=== PATIENT | female | born 1935 | race Caucasian/White ===

== ENCOUNTER → 2016-08-26 | Outpatient (CLI) | payer MEDICARE, BC ==
[~2016-08-26] MED LIST: BIOT10004 PO; CALC500T42 PO; LISI-360 PO; METO50TA PO; TAB-TAB PO; VITA20002 PO
[2016-08-26 13:03] LABS: HEMATOCRIT 37.2 % (35.0-46.0); MEAN CELL VOLUME 89.3 FL (80.0-100.0); MEAN CORPUSCULAR HEMOGLOBIN 30.3 PG (27.0-34.0); MEAN CORPUSCULAR HGB CONC 33.9 % (32.0-36.0); PLATELET COUNT 277 TH/MM3 (150-450); RED BLOOD COUNT 4.17 MIL/MM3 (4.00-5.30); RED CELL DISTRIBUTION WIDTH 13.8 % (11.6-17.2); REVIEW FLAG FINAL; WHITE BLOOD COUNT 5.6 TH/MM3 (4.0-11.0)
== END ==
LOC: PLAB 10:20
PROVIDERS: ATTEND Family Medicine
DX: R53.83 Other fatigue (principal)
CPT/HCPCS: 36415; 84443; 85027

== ENCOUNTER → 2016-10-10 | Outpatient (CLI) | payer MEDICARE, BC ==
[2016-10-10 13:33] LABS: ALKALINE PHOSPHATASE 75 U/L (45-117); ALT (GPT) 17 U/L (10-53); ANION GAP 8 MEQ/L (5-15); AST (GOT) 18 U/L (15-37); BICARBONATE 31.5 MEQ/L (21.0-32.0); BLOOD UREA NITROGEN 16 MG/DL (7-18); CHLORIDE 100 MEQ/L (98-107); GLOMERULAR FILTRATION RATE 57 ML/MIN (>89); POTASSIUM 4.4 MEQ/L (3.5-5.1); SODIUM (NA) 139 MEQ/L (136-145); TOTAL BILIRUBIN ADULT 0.3 MG/DL (0.2-1.0)
== END ==
LOC: PLAB 11:10
PROVIDERS: ATTEND Internal Medicine Endocrinology, Diabetes & Metabolism
DX: M81.0 Age-related osteoporosis without current pathological fracture (principal)
CPT/HCPCS: 36415; 80053; 82306

== ENCOUNTER 2017-01-31 12:06 | Inpatient (IN) | payer MEDICARE, BC ==
[~2017-01-31 12:06] MED LIST changes: +AMLO5TAB2 PO; -BIOT10004 PO; -CALC500T42 PO; +CALTCHW5 PO; +CHOL1CAP6 PO; +CLON1TAB PO; +DENO60P SQ; -LISI-360 PO; +LISI-515 PO; +ONCETAB7 PO; -TAB-TAB PO; -VITA20002 PO; +VITA250T3 PO
--- NOTE | 2017-01-31 12:55 | HHI.HP ---
HPI Service [facility] Primary Care Physician Abel Mann MD Admission Diagnosis Diagnoses: Chief Complaint: Shortness of breath, chills, recent pneumonia. Travel History International Travel<30 Days: No Contact w/Intl Traveler <30 Da: No Traveled to Known Affected Are: No History of Present Illness Ms. Ocampo is a pleasant 81-year-old female with a history of lung cancer, COPD, CHF, recent pneumonia who was directly admitted from her primary care provider's office due to shortness of breath, generalized weakness that started on 01/30/2017. Patient recently went to [place] for vacation and she was admitted at a local hospital in [facility] for 5 days due to pneumonia. She was discharged on , 01/26/2017 and she flew back on a 4 hour flight to [place] on 01/28/2017. Patient was doing well up until 01/30/2017 when she woke up with significant generalized weakness, shortness of breath and back chills. She did not have any cough, fever or chest pain. She denies any headache, nausea or vomiting, abdominal pain. Denies any ingested in bowel habits. She does however report not urinating enough. No dysuria or hematuria. Review of Systems Except as stated in HPI: all other systems reviewed are Neg Past Family Social History Past Medical History Congestive heart failure, hypertension, pneumonia, lung cancer, COPD Past Surgical History Hysterectomy Appendectomy Right knee surgery Reported Medications Metoprolol 50 mg twice a day Amlodipine 5 mg daily Lisinopril 20 mg twice a day Clonazepam 1 mg by mouth daily at bedtime Ehsan-Citrate 600+ D1 tablet daily Ascorbic acid 250 mg by mouth daily Vitamin D3 1000 unit capsules by mouth daily Multivitamin 1 Capsule daily. Allergies: Coded Allergies: amiodarone (Unverified Allergy, Severe, DESTROYED THYROID, 01/17/17) Family History No family history of Alzheimer's or Parkinson's. Social History Patient denies using alcohol, tobacco, illicit drugs. Physical Exam Physical Exam GENERAL: This is a well-nourished, well-developed patient, in no apparent distress. Currently on room air. SKIN: No rashes, ecchymoses or lesions. Warm and dry. HEAD: Atraumatic. Normocephalic. No temporal or scalp tenderness. EYES: Pupils equal round and reactive. No injection or drainage. ENT: Nose without bleeding, purulent drainage or septal hematoma. Airway patent. NECK: Trachea midline. No lymphadenopathy. Supple, nontender, no meningeal signs. CARDIOVASCULAR: Regular rhythm, tachycardic without murmurs, gallops, or rubs. No JVD. RESPIRATORY: Moderate air entry. No wheezing appreciated. Left basilar minor crackles appreciated. GASTROINTESTINAL: Abdomen soft, non-tender, nondistended. No guarding. MUSCULOSKELETAL: Extremities without clubbing, cyanosis, or edema. NEUROLOGICAL: Awake and alert. Cranial nerves II through XII intact. No focal neurological deficits. Normal speech. Laboratory CMP, CBC, lactic acid pending Imaging Chest x-ray pending. We'll probably consider CT angiography of the lungs depending on patient's creatinine. Caprini VTE Risk Assessment Caprini VTE Risk Assessment: Mod/High Risk (score >= 2) Caprini Risk Assessment Model Point Value = 1 Point Value = 2 Point Value = 3 Point Value = 5 Age 41-60 Minor surgery BMI > 25 kg/m2 Swollen legs Varicose veins or History of unexplained or recurrent spontaneous Oral contraceptives or hormone replacement Sepsis (< 1 month) Serious lung disease, including pneumonia (< 1 month) Abnormal pulmonary function Acute myocardial infarction Congestive heart failure (< 1 month) History of inflammatory bowel disease Medical patient at bed rest Age 61-74 Arthroscopic surgery Major open surgery (> 45 min) Laparoscopic surgery (> 45 min) Malignancy Confined to bed (> 72 hours) Immobilizing plaster cast Central venous access Age >= 75 History of VTE Family history of VTE Factor V Leiden Prothrombin [id number] Lupus anticoagulant Anticardiolipin antibodies Elevated serum homocysteine Heparin-induced thrombocytopenia Other congenital or acquired thrombophilia Stroke (< 1 month) Elective arthroplasty Hip, pelvis, or leg fracture Acute spinal cord injury (< 1 month) Prophylaxis Regimen Total Risk Factor Score Risk Level Prophylaxis Regimen 0-1 Low Early ambulation 2 Moderate Order ONE of the following: *Sequential Compression Device (SCD) *Heparin 5000 units SQ BID 3-4 Higher Order ONE of the following medications: *Heparin 5000 units SQ TID *Enoxaparin/Lovenox 40 mg SQ daily (WT < 150 kg, CrCl > 30 mL/min) *Enoxaparin/Lovenox 30 mg SQ daily (WT < 150 kg, CrCl > 10-29 mL/min) *Enoxaparin/Lovenox 30 mg SQ BID (WT < 150 kg, CrCl > 30 mL/min) AND/OR *Sequential Compression Device (SCD) 5 or more Highest Order ONE of the following medications: *Heparin 5000 units SQ TID (Preferred with Epidurals) *Enoxaparin/Lovenox 40 mg SQ daily (WT < 150 kg, CrCl > 30 mL/min) *Enoxaparin/Lovenox 30 mg SQ daily (WT < 150 kg, CrCl > 10-29 mL/min) *Enoxaparin/Lovenox 30 mg SQ BID (WT < 150 kg, CrCl > 30 mL/min) AND *Sequential Compression Device (SCD) Assessment and Plan Problem List: (1) History of pneumonia ICD Code: Z87.01 - Personal history of pneumonia (recurrent) (2) COPD (chronic obstructive pulmonary disease) ICD Code: J44.9 - Chronic obstructive pulmonary disease, unspecified (3) History of lung cancer ICD Code: Z85.118 - Personal history of other malignant neoplasm of bronchus and lung (4) Hypertension ICD Code: I10 - Hypertension Status: Chronic Assessment and Plan Ms. Ocampo is a pleasant 81-year-old female with a history of lung cancer, COPD, recent pneumonia treated in [place] who was admitted directly from the primary care provider's office due to shortness of breath, generalized weakness, chills. Patient denies any cough, fever. - Generalized weakness - Dyspnea - Recent pneumonia treated in [place]. Patient was discharged from the hospital on , 01/26/2017. - We are going to obtain basic labs including CBC, CMP, lactic acid, CXR. - If creatinine below 1.5 we'll consider obtaining pulmonary CT angiography. - Well's score for PE 4.5 - Moderate risk. Given her recent travel history ( 4 hour flight), concerning for PE. - If CT PE study cannot be done, we will consider VQ scan. - Pulmonology consulted. - COPD - does not appear to be in exacerbation. - Continue supplemental oxygen to keep O2 saturation above 90%. - DuoNeb when necessary. - History of recent pneumonia - patient was admitted in in a hospital in [place] for 5 days. Patient did not require any antibiotics on supplemental oxygen post discharge. - Hypertension - home medications are amlodipine 5 mg and lisinopril 20 mg twice a day. Full code. Heparin SQ. Physician Certification 2 Midnight Certification Type: Admission for Inpatient Services Order for Inpatient Services The services are ordered in accordance with Medicare regulations or non- Medicare payer requirements, as applicable. In the case of services not specified as inpatient-only, they are appropriately provided as inpatient services in accordance with the 2-midnight benchmark. Estimated LOS (days): 2 days is the estimated time the patient will need to remain in the hospital, assuming treatment plan goals are met and no additional complications. Post-Hospital Plan: Home Jesenia Davies DO Jan 31, 2017 12:55
[2017-01-31] MEDS ORDERED: SENNOSIDES 8.6 MG TAB PO PRN (13:00)
[2017-01-31] MEDS ORDERED: ONDANSETRON HCL 4 MG/2 ML VIAL IVP PRN (13:00)
[2017-01-31] MEDS ORDERED: SODIUM CHLORIDE 0.9% FLUSH 10 ML FLUSH IV FLUSH PRN (13:00)
[2017-01-31] MEDS ORDERED: BISACODYL 10 MG SUPP RECTAL PRN (13:00)
[2017-01-31] MEDS ORDERED: RESP: ALBUTEROL 2.5 MG/IPRATROPIUM 0.5 MG NEB (PRN) NEB (13:00)
[2017-01-31] MEDS ORDERED: LACTULOSE SYRUP 20 GM/30 ML CUP PO PRN (13:00)
[2017-01-31] MEDS ORDERED: NALOXONE HCL 0.4 MG/ML AMP IV PRN (13:00)
[2017-01-31] MEDS ORDERED: MAGNESIUM HYDROXIDE SUSP 30 ML CUP PO PRN (13:00)
[2017-01-31 14:07] LABS: AUTOMATED NEUTROPHIL # 8.3 TH/MM3 (1.8-7.7); BASOPHIL # 0.4 TH/MM3 (0-0.2); EOSINOPHIL # 0.5 TH/MM3 (0-0.4); EOSINOPHIL % 5.1 % (0.0-4.0); HEMATOCRIT 34.4 % (35.0-46.0); LYMPHOCYTE # 0.7 TH/MM3 (1.0-4.8); MEAN CELL VOLUME 87.7 FL (80.0-100.0); MEAN CORPUSCULAR HEMOGLOBIN 29.6 PG (27.0-34.0); MEAN CORPUSCULAR HGB CONC 33.8 % (32.0-36.0); MONO % 4.1 % (0.0-8.0); NEUT % 79.8 % (16.0-70.0); PLATELET COUNT 290 TH/MM3 (150-450); RED BLOOD COUNT 3.92 MIL/MM3 (4.00-5.30); RED CELL DISTRIBUTION WIDTH 13.2 % (11.6-17.2); WHITE BLOOD COUNT 10.3 TH/MM3 (4.0-11.0)
[2017-01-31] MEDS: HEPARIN SODIUM - SQ 10,000 UNITS/ML VIAL SQ SCH ×2 (14:08→22:33)
[2017-01-31 14:20] LABS: CHLORIDE 96 MEQ/L (98-107); POTASSIUM 3.5 MEQ/L (3.5-5.1); SODIUM (NA) 131 MEQ/L (136-145)
[2017-01-31 14:26] LABS: ANION GAP 7 MEQ/L (5-15); BICARBONATE 28.3 MEQ/L (21.0-32.0); BLOOD UREA NITROGEN 26 MG/DL (7-18)
[2017-01-31 14:29] LABS: ALT (GPT) 19 U/L (10-53); AST (GOT) 17 U/L (15-37); GLOMERULAR FILTRATION RATE 53 ML/MIN (>89)
[2017-01-31 14:31] LABS: TOTAL BILIRUBIN ADULT 0.5 MG/DL (0.2-1.0)
[2017-01-31 14:32] LABS: ALKALINE PHOSPHATASE 64 U/L (45-117)
[2017-01-31 14:42] LABS: HEMO FLAGS DIFF FINAL
--- NOTE | 2017-01-31 14:45 | RADRPT ---
EXAM DATE/TIME: 01/31/2017 14:17 [facility] COMPARISON: CHEST PA & LAT, August 03, 2013, 11:39. CHEST SINGLE AP, January 22, 2015, 2:10. CHEST EXPIRATION ONL Y, June 11, 2015, 14:44. INDICATIONS : Patient was recently released from a hospitalization for penumonia in [place] last week. Still h as symptoms. MEDICAL HISTORY : Hypertension. Chronic obstructive pulmonary disease. Osteoporosis. Irregular heart beat. Chemothe rapy. Radiation therapy. Dyspnea. Arthritis. Lung CA. Breast CA. Cervical CA. SURGICAL HISTORY : Tonsillectomy. Appendectomy. Hysterectomy. Cataract surgery. Cardiac ablation. Knee replacement. ENCOUNTER: Initial ACUITY: 2 weeks PAIN SCORE: 0/10 LOCATION: chest FINDINGS: PA and lateral views of the chest are stable from the prior study. A focal masslike density is unchan ged involving the right suprahilar region. The lungs are hyperaerated. No infiltrates or effusions. H eart is at the upper limits of normal in terms of size. A scoliotic and degenerative spine is seen. S urgical clips overlie the left axilla. CONCLUSION: Stable chronic changes as detailed above. Cricket South Jr., MD on January 31, 2017 at 14:42 Board Certified Radiologist. This report was verified electronically.
[2017-01-31 18:00] VITALS: BP 142/66; PULSE 102; RESP 18; TEMP 99.5; O2SAT 100
[2017-01-31 20:00] VITALS: BP 140/61; PULSE 104; RESP 20; TEMP 100; O2SAT 96
[2017-01-31] MEDS: SODIUM CHLORIDE 0.9% FLUSH 10 ML FLUSH IV FLUSH SCH (20:40)
[2017-01-31] MEDS: DOCUSATE SODIUM 50 MG/SENNA 8.6 MG TAB PO SCH (20:40)
[2017-01-31] MEDS: ACETAMINOPHEN 325 MG TAB PO PRN (20:40)
[2017-01-31] MEDS: SODIUM CHLOR 0.9% 1000 ML INJ 1,000 ML IV SCH (20:40)
[2017-01-31] MEDS: BUDESONIDE-FORMOTEROL 160/4.5 MCG INHALER INH SCH (20:41)
[2017-01-31 21:03] LABS: BLOOD, URINE TRACE (NEG); GLUCOSE,URINE NEG (NEG); KETONE, URINE NEG (NEG); NITRITE,URINE NEG (NEG)
[2017-01-31 21:25] LABS: MUCUS URINE OCC /lpf (OCC); URINE COLOR YELLOW (YELLW/STRAW)
[2017-01-31 21:26] LABS: COMMENT (UR) CULTURE INDICATED; CULTURE IF INDICATED CULTURE INDICATED; RBC, URINE 0-3 /hpf (0-3); SQUAMOUS EPITHELIAL CELL URINE 0-5 /hpf (0-5); WBC, URINE 15-19 /hpf (0-5)
[2017-01-31 22:36] VITALS: O2SAT 95
[2017-01-31] MEDS ORDERED: IOHEXOL 350 MG/ML 10 ML VIAL (for RAD DIAG) IVCONTRAST ONE (22:40)
--- NOTE | 2017-01-31 22:48 | RADRPT ---
EXAM DATE/TIME: 01/31/2017 21:51 [facility] COMPARISON: CHEST PA & LAT, January 31, 2017, 14:17. CT NEEDLE BIOPSY LUNG, RIGHT, June 11, 2015, 9:44. CHEST EXPIRATION ONLY, June 11, 2015, 14:44. INDICATIONS : Shortness of breath. Evaluate for embolism. IV CONTRAST: 75 cc Omnipaque 350 (iohexol) IV RADIATION DOSE: 7.94 CTDIvol (mGy) MEDICAL HISTORY : Hypertension. Chronic obstructive pulmonary disease. Carcinoma, lung.Carcinoma, breast. Carcinoma, ce rvical. SURGICAL HISTORY : Appendectomy. Hysterectomy.Cardiac ablation. ENCOUNTER: Initial ACUITY: 1 day PAIN SCALE: 4/10 LOCATION: chest TECHNIQUE: Volumetric scanning of the chest was performed using a pulmonary embolism protocol MIP images were re constructed. Using automated exposure control and adjustment of the mA and/or kV according to patien t size, radiation dose was kept as low as reasonably achievable to obtain optimal diagnostic quality images. DICOM format image data is available electronically for review and comparison. Follow-up recommendations for detected pulmonary nodules are based at a minimum on nodule size and pa tient risk factors according to Fleischner Society Guidelines. FINDINGS: PULMONARY ARTERIES: No filling defects are seen in the pulmonary arteries through the segmental level. LUNGS: There is chronic interstitial changes bilaterally. There is some parenchymal consolidation in the med ial right upper lung suspect is related to postradiation changes. There is scarring in both apices. T here are parenchymal changes in the medial right middle lobe. The lung bases are grossly clear. PLEURAE: There is no pleural thickening or pleural effusion. MEDIASTINUM: Few nonspecific lymph nodes are seen in the mediastinum. MUSCULOSKELETAL: Within normal limits for patient age. Degenerative changes. MISCELLANEOUS: The visualized upper abdominal organs demonstrate no acute abnormality. CONCLUSION: 1. No evidence of pulmonary embolism 2. Parenchymal changes in the medial right upper lung most likely related to post radiation therapy. 3. Parenchymal changes in the right middle lobe. 4. Scarring in both apices. 5. Bilateral chronic interstitial changes. Gutierrez Romero MD on January 31, 2017 at 22:42 Board Certified Radiologist. This report was verified electronically.
[2017-02-01] VITALS (8 sets, daily range): BP systolic 143–188; BP diastolic 68–80; PULSE 99–117; RESP 17–20; TEMP 96.6–101.3; O2SAT 93–95
[2017-02-01 06:47] LABS: AUTOMATED NEUTROPHIL # 5.3 TH/MM3 (1.8-7.7); BASOPHIL # 0.1 TH/MM3 (0-0.2); BASOPHIL % 1.2 % (0.0-2.0); EOSINOPHIL # 0.7 TH/MM3 (0-0.4); EOSINOPHIL % 9.6 % (0.0-4.0); HEMATOCRIT 33.8 % (35.0-46.0); HEMO FLAGS DIFF FINAL; LYMPH % 7.9 % (9.0-44.0); LYMPHOCYTE # 0.6 TH/MM3 (1.0-4.8); MEAN CORPUSCULAR HEMOGLOBIN 29.6 PG (27.0-34.0); MEAN CORPUSCULAR HGB CONC 32.9 % (32.0-36.0); MONO % 6.6 % (0.0-8.0); NEUT % 74.7 % (16.0-70.0); PLATELET COUNT 221 TH/MM3 (150-450); RED BLOOD COUNT 3.76 MIL/MM3 (4.00-5.30); RED CELL DISTRIBUTION WIDTH 13.9 % (11.6-17.2); WHITE BLOOD COUNT 7.2 TH/MM3 (4.0-11.0)
[2017-02-01 06:54] LABS: POTASSIUM 3.2 MEQ/L (3.5-5.1)
[2017-02-01 07:25] LABS: BICARBONATE 23.7 MEQ/L (21.0-32.0); CALCIUM-PROTEIN CORRECTED 7.8 MG/DL (8.5-10.1); TOTAL BILIRUBIN ADULT 0.4 MG/DL (0.2-1.0)
[2017-02-01] MEDS: DOCUSATE SODIUM 50 MG/SENNA 8.6 MG TAB PO SCH ×2 (07:50→12:52)
[2017-02-01] MEDS: SODIUM CHLORIDE 0.9% FLUSH 10 ML FLUSH IV FLUSH SCH ×2 (07:50→20:46)
[2017-02-01] MEDS: BUDESONIDE-FORMOTEROL 160/4.5 MCG INHALER INH SCH ×2 (07:50→20:46)
[2017-02-01] MEDS: ACETAMINOPHEN 325 MG TAB PO PRN ×3 (08:00→21:13)
[2017-02-01] MEDS ORDERED: INFLUENZA VIRUS VACCINE (QUADRIVALENT) 0.5 ML SYR IM ONE (10:00)
[2017-02-01] MEDS: HEPARIN SODIUM - SQ 10,000 UNITS/ML VIAL SQ SCH ×2 (12:52→23:39)
[2017-02-01] MEDS: METOPROLOL TARTRATE 50 MG TAB PO SCH ×2 (13:50→20:46)
[2017-02-01] MEDS: amLODIPine BESYLATE 5 MG TAB PO SCH (13:50)
[2017-02-01] MEDS: SODIUM CHLOR 0.9% 1000 ML INJ 1,000 ML IV SCH (13:50)
[2017-02-01] MEDS: LISINOPRIL 20 MG TAB PO SCH ×2 (13:50→20:46)
[2017-02-01 16:46] LABS: MAGNESIUM 2.2 MG/DL (1.5-2.5)
--- NOTE | 2017-02-01 16:48 | HHI.PR ---
Subjective Remarks Patient says she's feeling much better, is asking when she can go home. Denies having any nausea or vomiting or fever since last night, tolerating by mouth intake well. Discussed with nursing, no acute events reported overnight. Says she had a PET scan 6-8 weeks ago and that was negative for any cancer. Objective Vital Signs Date Time Temp Pulse Resp B/P (MAP) Pulse Ox O2 Delivery O2 Flow Rate FiO2 02/01/17 12:00 98.8 99 17 143/80 (101) 95 02/01/17 09:51 94 21 02/01/17 08:00 99.9 112 18 158/72 (100) 94 02/01/17 01:42 96.6 01/31/17 22:36 95 21 01/31/17 20:00 100.0 104 20 140/61 (87) 96 01/31/17 18:00 99.5 102 18 142/66 (91) 100 I/O 01/31/17 01/31/17 01/31/17 02/01/17 02/01/17 02/01/17 06:59 14:59 22:59 06:59 14:59 22:59 Intake Total 866 ml Output Total 100 ml 875 ml Balance -100 ml -9 ml Intake Oral 480 ml IV Total 386 ml Output Urine Total 100 ml 875 ml # Voids 1 5 # Bowel Movements 0 0 Result Diagram: 02/01/17 0609 02/01/17 0609 Objective Remarks GENERAL: Resting in bed comfortably, no acute distress CARDIOVASCULAR: Regular rate and rhythm without murmurs, gallops, or rubs. RESPIRATORY: Breath sounds equal and clear bilaterally. Unlabored breathing NEURO: alert and oriented x 3 A/P Assessment and Plan Ms. Ocampo is a pleasant 81-year-old female with a history of lung cancer, COPD, recent pneumonia treated in [place] who was admitted directly from the primary care provider's office due to shortness of breath, generalized weakness, chills. Patient denies any cough, fever. - Generalized weakness - improving subjectively. No fever noted while inpt. D/w pt possibilities of cancer, autoimmune dx, or infx. - Dyspnea - resolved. - CT scan neg for PE. shows chronic changes. I independently reviewed the CT scan films I do not see any acute pleural effusions or any acute infiltrates suggestive of pneumonia. - COPD - does not appear to be in exacerbation. - Continue supplemental oxygen to keep O2 saturation above 90%. - DuoNeb when necessary. - Hypertension - home medications amlodipine 5 mg and lisinopril 20 mg twice a day. Full code. Heparin SQ. Gabo Reich MD Feb 01, 2017 16:48
--- NOTE | 2017-02-02 00:58 | MB ---
cc: Ben SELF M.D. DATE OF CONSULTATION 02/01/17 HISTORY OF PRESENT ILLNESS Ms. Ocampo is an 81-year-old white female whom I have followed with COPD for many years and also lung cancer twice, most recently in 2016 treated with chemotherapy and radiation. She has had radiation scarring in the lung and a recent CT and PET CT in November did not suggest recurrent malignancy. She was recently hospitalized though while visiting family in [place] and they told her she had viral pneumonia. She was treated with antibiotics for 5 days, released and a flew home. She got back last week but came into her primary care doctor's office 2 days ago with a temperature of 103. She was sent immediately to the emergency room. CT scan was performed and in light of the recent travel and angiogram was included. There was no evidence of pulmonary embolism and she had parenchymal changes in the medial upper lobe consistent with prior radiation therapy and some mild changes in the middle lobe, nothing to really suggest an acute pneumonia. During the hospital stay her temperature has been 96 to the highest 100, today it has been 98 and she says she feels much better. She has had no hemoptysis or purulent sputum. She has had blood cultures which were negative. White count which is 7200, hemoglobin is 11.1, platelet counts normal. Electrolytes mildly abnormal with a sodium of 131 and a potassium of 3.2. She has had no hemoptysis. No purulent sputum. No swelling in her legs. No recent bowel complaints or urinary tract complaints. The urine culture is pending. PAST MEDICAL HISTORY She has a prior history of hypertension. She has had a hysterectomy and appendectomy, right knee surgery. MEDICATIONS Medications reviewed in the EMR. ALLERGIES AMIODARONE. SOCIAL HISTORY Single, . No longer smokes. Does not drink much alcohol. PHYSICAL EXAMINATION VITAL SIGNS: 98 degrees, 140/80, pulse is 90, respirations are 18. Her sats 95%. HEENT: Sclerae anicteric. Pharynx is clear. NECK: No adenopathy in the neck or supraclavicular region. LUNGS: Her chest is actually completely clear. No wheezes, rales or congestion. HEART: Regular rhythm. No harsh murmur. EXTREMITIES: No edema, calf tenderness or cyanosis. ASSESSMENT/PLAN Kay has been in the hospital over 24 hours now and has had a low grade temperature but is afebrile today. No specific site of infection has been identified. I do not see anything in her chest that really suggests an active infection, although, there could be something hidden in those areas of radiation fibrosis. Since she has already received 5 days of IV antibiotics recently I do not think treating her empirically at this point is warranted of course unless she has another temperature. She can continue her bronchodilators. If there is no other indication for continued hospitalization pulmonary status is stable for discharge and I can see her back in the office. However, I did explain to her that if she develops recurrent fever or increasing shortness of breath she should report back to the ER. R. Enmanuel Self MD RSW/EO /6:02 PM /12:47 AM
[2017-02-02 08:00] VITALS: O2SAT 95
[2017-02-02] MEDS: LISINOPRIL 20 MG TAB PO SCH ×2 (08:13→22:11)
[2017-02-02] MEDS: DOCUSATE SODIUM 50 MG/SENNA 8.6 MG TAB PO SCH ×2 (08:13→22:10)
[2017-02-02] MEDS: amLODIPine BESYLATE 5 MG TAB PO SCH (08:13)
[2017-02-02] MEDS: METOPROLOL TARTRATE 50 MG TAB PO SCH ×2 (08:13→22:10)
[2017-02-02] MEDS: BUDESONIDE-FORMOTEROL 160/4.5 MCG INHALER INH SCH ×2 (08:16→22:11)
[2017-02-02] MEDS: SODIUM CHLORIDE 0.9% FLUSH 10 ML FLUSH IV FLUSH SCH ×2 (08:16→22:11)
[2017-02-02 08:27] LABS: POTASSIUM 3.3 MEQ/L (3.5-5.1)
[2017-02-02 08:40] LABS: BICARBONATE 28.8 MEQ/L (21.0-32.0)
[2017-02-02] MEDS: guaiFENesin E.R. 600 MG TAB PO SCH ×2 (10:34→22:11)
[2017-02-02] MEDS: LEVOFLOXACIN 750 MG TAB PO SCH ×2 (10:34→10:35)
[2017-02-02] MEDS: HEPARIN SODIUM - SQ 10,000 UNITS/ML VIAL SQ SCH ×2 (10:35→22:19)
[2017-02-02 15:06] VITALS: BP 165/72; PULSE 95; RESP 18; TEMP 99.9; O2SAT 95
--- NOTE | 2017-02-02 15:36 | HHI.PR ---
Subjective Remarks Patient seen and examined today for follow-up on febrile illness. Patient again had fever last night with MAXIMUM TEMPERATURE 101.3. Patient states that she still has a dry nonproductive cough. She contributes the fever to her room being very hot. Is recommended by patient's security expert that if she is afebrile she could go home, however will need to start treatment since she now has fever. Objective Vitals Vital Signs Date Time Temp Pulse Resp B/P (MAP) Pulse Ox O2 Delivery O2 Flow Rate FiO2 02/02/17 15:06 99.9 95 18 165/72 (103) 95 02/01/17 23:00 98.7 02/01/17 21:55 100.2 101 20 146/68 (94) 93 02/01/17 20:55 94 21 02/01/17 20:00 101.3 117 20 188/80 (116) 95 I/O 02/01/17 02/01/17 02/01/17 02/02/17 02/02/17 02/02/17 06:59 14:59 22:59 06:59 14:59 22:59 Intake Total 866 ml 120 ml Output Total 875 ml 600 ml 1000 ml Balance -9 ml -600 ml -880 ml Intake Oral 480 ml 120 ml IV Total 386 ml Output Urine Total 875 ml 600 ml 1000 ml # Voids 5 2 1 # Bowel Movements 0 Result Diagram: 02/01/17 0609 02/02/17 0805 Objective Remarks GENERAL: Well-developed, well-nourished, in no acute distress. alert and orientated HEENT: Head is normocephalic without any lesions or masses noted. Facial features are symmetric. Eyes: Extraocular muscles are intact. Conjunctivae were clear NECK: Supple without any masses. Trachea midline no deviation. No JVD CARDIAC: Regular rhythm, regular rate. S1/S2 are heard. No murmurs gallops or rubs. LUNGS: Clear to auscultation bilaterally. No wheeze, rhonchi or rales. No use of accessory muscles on inspiration or expiration. ABDOMEN: Soft, nontender. Nondistended. Bowel sounds heard in all 4 quadrants. No organomegaly or masses. Negative rebound, negative guarding EXTREMITIES: No edema, pulses are equal bilaterally. No cyanosis or clubbing NEUROLOGY: Mood and affect appear appropriate. Cranial nerves II through XII grossly intact. Moving all extremities, speech is clear Urinary Catheter: No Vascular Central Line Catheter: No A/P Assessment and Plan Febrile illness, unknown etiology Could be viral in nature, however cannot completely rule out interstitial pneumonia and fibrotic lung tissue CT scan does not indicate any acute abnormality, PE, consolidations. Start Levaquin 750 mg daily Start Mucinex 600 mg twice daily Obtain influenza testing, sputum culture, strep pneumonia testing, Legionella testing Generalized weakness Physical therapy evaluated patient and recommended home with home health care i Chronic obstructive pulmonary disease without exacerbation Continue supplemental oxygen to keep O2 saturation above 90%. DuoNeb when necessary. Hypertension home medications amlodipine 5 mg and lisinopril 20 mg twice a day. DVT prevention Subcutaneous heparin Full code Discharge Planning Discharge planning hopefully tomorrow with home health care if patient remains afebrile Moreno Rico Feb 02, 2017 15:36
--- NOTE | 2017-02-02 15:37 | HHI.FF ---
Face to Face Verification Diagnosis: (1) Generalized weakness (2) COPD (chronic obstructive pulmonary disease) Physical Therapy Order: Evaluate and Treat, Improve ambulation, Strength and gait training Home Health Nursing Order: Medical education Signs/symptoms of disease process Nursing assessment with vital signs I have seen patient Kay Ocampo on 02/02/17. My clinical findings support the need for the requested home health care services because: Patient has SOB Deconditioned w/ increased weakness I certify that my clinical findings support that this patient is homebound because: Hx COPD- exertion dyspnea/weakness Moreno Rico Feb 02, 2017 15:37
[2017-02-02 15:46] VITALS: BP 127/63; PULSE 96; RESP 18; TEMP 97.3; O2SAT 95
[2017-02-02 20:00] VITALS: BP 147/72; PULSE 108; RESP 20; TEMP 98.6; O2SAT 97
[2017-02-02 20:39] VITALS: O2SAT 98
[2017-02-03 08:00] VITALS: BP 151/70; PULSE 109; RESP 22; TEMP 97.7; O2SAT 94
[2017-02-03] MEDS: DOCUSATE SODIUM 50 MG/SENNA 8.6 MG TAB PO SCH (08:44)
[2017-02-03] MEDS: LISINOPRIL 20 MG TAB PO SCH (08:44)
[2017-02-03] MEDS: guaiFENesin E.R. 600 MG TAB PO SCH (08:44)
[2017-02-03] MEDS: amLODIPine BESYLATE 5 MG TAB PO SCH (08:44)
[2017-02-03] MEDS: METOPROLOL TARTRATE 50 MG TAB PO SCH (08:44)
[2017-02-03] MEDS: BUDESONIDE-FORMOTEROL 160/4.5 MCG INHALER INH SCH (08:45)
[2017-02-03] MEDS: SODIUM CHLORIDE 0.9% FLUSH 10 ML FLUSH IV FLUSH SCH (08:47)
[2017-02-03] MEDS ORDERED: LEVA750T9 PO (08:59)
--- NOTE | 2017-02-03 09:00 | HHI.DCPOC ---
Discharge Care Plan Diagnosis: (1) Fever (2) Generalized weakness Goals to Promote Your Health * To prevent worsening of your condition and complications * To maintain your health at the optimal level Directions to Meet Your Goals Take your medications as prescribed Follow your dietary instruction Follow activity as directed Keep your appointments as scheduled Take your immunizations and boosters as scheduled If your symptoms worsen call your PCP, if no PCP go to Urgent Care Center or Emergency Room Smoking is Dangerous to Your Health. Avoid second hand smoke Call the 24-hour hour crisis hotline for domestic abuse at Moreno Rico Feb 03, 2017 09:00
--- NOTE | 2017-02-03 09:59 | PD.CONS ---
History of Present Illness Service Infectious Disease Consult Requested By Dr Enmanuel Salas Reason for Consult Fever- recurrent Primary Care Physician Abel Mann MD Diagnoses: (1) Fever (2) COPD (chronic obstructive pulmonary disease) (3) History of lung cancer History of Present Illness 81/ year old with h/o COPD - multiple cancers- lung cancer x 2 - recurrence last year - got radiation therapy. Last Chemotherapy in 2012- was visiting [place] last month when she had fever with chills - admitted up there for 5 days and work up negative- told it was ? viral and discharged- came back home and was here 2 days when she had fever with chills ago. No cough with sputum. Shortness of breath at baseline. No urinary symptoms though urine is abnormal. Patient had a bad tooth with root canal of an infected tooth about a month ago. Did have a Echo with Dr Reyes after that and it was ok per patient. Past Family Social History Allergies: Coded Allergies: amiodarone (Unverified Allergy, Severe, DESTROYED THYROID, 01/17/17) Physical Exam Vital Signs Vital Signs Date Time Temp Pulse Resp B/P (MAP) Pulse Ox O2 Delivery O2 Flow Rate FiO2 02/03/17 08:00 97.7 109 22 151/70 (97) 94 02/02/17 20:39 98 21 02/02/17 20:00 98.6 108 20 147/72 (97) 97 02/02/17 15:46 97.3 96 18 127/63 (84) 95 02/02/17 15:06 99.9 95 18 165/72 (103) 95 Physical Exam GENERAL: This is a well-nourished, well-developed patient, in no apparent distress. SKIN: No rashes, ecchymoses or lesions. Cool and dry. HEAD: Atraumatic. Normocephalic. No temporal or scalp tenderness. EYES: Pupils equal round and reactive. Extraocular motions intact. No scleral icterus. No injection or drainage. ENT: Nose without bleeding, purulent drainage or septal hematoma. Throat without erythema, tonsillar hypertrophy or exudate. Uvula midline. Airway patent. NECK: Trachea midline. No JVD or lymphadenopathy. Supple, nontender, no meningeal signs. CARDIOVASCULAR: Regular rate and rhythm without murmurs, gallops, or rubs. RESPIRATORY: Clear to auscultation. Breath sounds equal bilaterally. No wheezes , rales, or rhonchi. GASTROINTESTINAL: Abdomen soft, non-tender, nondistended. No hepato-splenomegaly , or palpable masses. No guarding. MUSCULOSKELETAL: Extremities without clubbing, cyanosis, or edema. No joint tenderness, effusion, or edema noted. No calf tenderness. Negative Homans sign bilaterally. NEUROLOGICAL: Awake and alert. Cranial nerves II through XII intact. Motor and sensory grossly within normal limits. Five out of 5 muscle strength in all muscle groups. Normal speech. Laboratory Date/Time Source Procedure Growth Status 01/31/17 19:05 Blood Peripheral Aerobic Blood Culture - Preliminary NO GROWTH IN 2 DAYS Resulted 01/31/17 19:05 Blood Peripheral Anaerobic Blood Culture - Preliminary NO GROWTH IN 2 DAYS Resulted 02/02/17 10:42 Nasal Aspirate Influenza Types A,B Antigen (BOB) - Final NEGATIVE FOR FLU A AND B ANTIGEN.... Complete 02/02/17 10:42 Urine Random Urine Legionella Antigen - Final PRESUMPTIVE NEGATIVE FOR LEGIONELLA P... Complete 02/02/17 10:42 Urine Random Urine Streptococcus pneumoniae Antigen (M - Final PRESUMPTIVE NEGATIVE FOR STREPTOCOCCU... Complete Result Diagram: 02/01/17 0609 02/02/17 0805 Assessment and Plan Problem List: (1) Fever ICD Codes: R50.9 - Fever, unspecified Status: Acute Plan: Cause uncertain Patient did have an infected root canal last month Follow blood cultures- though may remain negative as patient did have antibiotics Check CRP If CRP very high would need to consider MANFRED and evaluation by Cardiology If CRP < 10, has been afebrile for at least 48 hours and blood cultures remain negative - then would finish course of Levaquin UA was abnormal- will repeat (2) COPD (chronic obstructive pulmonary disease) ICD Codes: J44.9 - Chronic obstructive pulmonary disease, unspecified (3) History of lung cancer ICD Codes: Z85.118 - Personal history of other malignant neoplasm of bronchus and lung Problem Qualifiers (1) Fever: Qualified Codes: R50.9 - Fever, unspecified (2) COPD (chronic obstructive pulmonary disease): Qualified Codes: J44.9 - Chronic obstructive pulmonary disease, unspecified Le Araya MD Feb 03, 2017 09:59
[2017-02-03] MEDS: LEVOFLOXACIN 750 MG TAB PO SCH (10:13)
[2017-02-03] MEDS: HEPARIN SODIUM - SQ 10,000 UNITS/ML VIAL SQ SCH (10:17)
[2017-02-03 11:28] LABS: BLOOD, URINE NEG (NEG); GLUCOSE,URINE NEG (NEG); KETONE, URINE NEG (NEG); NITRITE,URINE NEG (NEG)
[2017-02-03 11:35] LABS: COMMENT (UR) CULT NOT INDICATED; CULTURE IF INDICATED CULT NOT INDICATED; METHOD OF COLLECTION CLEAN CATCH; RBC, URINE 0-3 /hpf (0-3); SQUAMOUS EPITHELIAL CELL URINE 0-5 /hpf (0-5); URINE COLOR YELLOW (YELLW/STRAW)
--- NOTE | 2017-02-03 13:40 | HHI.DS ---
Discharge Summary Admission Date Jan 31, 2017 at 12:06 Discharge Date: Feb 03, 2017 Admitting Diagnosis (1) History of pneumonia ICD Code: Z87.01 - Personal history of pneumonia (recurrent) (2) COPD (chronic obstructive pulmonary disease) ICD Code: J44.9 - Chronic obstructive pulmonary disease, unspecified (3) History of lung cancer ICD Code: Z85.118 - Personal history of other malignant neoplasm of bronchus and lung (4) Hypertension ICD Code: I10 - Hypertension Status: Chronic Procedures None Brief History - From Admission Ms. Ocampo is a pleasant 81-year-old female with a history of lung cancer, COPD, CHF, recent pneumonia who was directly admitted from her primary care provider's office due to shortness of breath, generalized weakness that started on 01/30/2017. Patient recently went to [place] for vacation and she was admitted at a local hospital in [facility] for 5 days due to pneumonia. She was discharged on , 01/26/2017 and she flew back on a 4 hour flight to [place] on 01/28/2017. Patient was doing well up until 01/30/2017 when she woke up with significant generalized weakness, shortness of breath and back chills. She did not have any cough, fever or chest pain. She denies any headache, nausea or vomiting, abdominal pain. Denies any ingested in bowel habits. She does however report not urinating enough. No dysuria or hematuria. CBC/BMP: 02/01/17 0609 02/02/17 0805 Significant Findings Laboratory Tests Test 01/31/17 13:45 01/31/17 19:05 01/31/17 20:10 02/01/17 06:09 Red Blood Count 3.92 MIL/MM3 (4.00-5.30) 3.76 MIL/MM3 (4.00-5.30) Hematocrit 34.4 % (35.0-46.0) 33.8 % (35.0-46.0) Neutrophils (%) (Auto) 79.8 % (16.0-70.0) 74.7 % (16.0-70.0) Lymphocytes (%) (Auto) 7.0 % (9.0-44.0) 7.9 % (9.0-44.0) Eosinophils (%) (Auto) 5.1 % (0.0-4.0) 9.6 % (0.0-4.0) Basophils (%) (Auto) 4.0 % (0.0-2.0) Neutrophils # (Auto) 8.3 TH/MM3 (1.8-7.7) Lymphocytes # (Auto) 0.7 TH/MM3 (1.0-4.8) 0.6 TH/MM3 (1.0-4.8) Eosinophils # (Auto) 0.5 TH/MM3 (0-0.4) 0.7 TH/MM3 (0-0.4) Basophils # (Auto) 0.4 TH/MM3 (0-0.2) D-Dimer Quantitative (PE/DVT) 1.08 MG/L FEU (0.00-0.50) Blood Urea Nitrogen 26 MG/DL (7-18) 19 MG/DL (7-18) Random Glucose 135 MG/DL (74-106) Albumin 3.0 GM/DL (3.4-5.0) 2.7 GM/DL (3.4-5.0) Calcium Level 7.9 MG/DL (8.5-10.1) 7.4 MG/DL (8.5-10.1) Sodium Level 131 MEQ/L (136-145) 131 MEQ/L (136-145) Chloride Level 96 MEQ/L (98-107) Estimat Glomerular Filtration Rate 53 ML/MIN (>89) 79 ML/MIN (>89) C-Reactive Protein 11.00 MG/DL (0.00-0.30) Urine Leukocyte Esterase SMALL (NEG) Urine WBC 15-19 /hpf (0-5) Urine WBC Clumps FEW (NONE) Hemoglobin 11.1 GM/DL (11.6-15.3) Aspartate Amino Transf (AST/SGOT) 13 U/L (15-37) Potassium Level 3.2 MEQ/L (3.5-5.1) Protein Corrected Calcium 7.8 MG/DL (8.5-10.1) Test 02/01/17 16:30 02/02/17 08:05 02/03/17 11:15 02/03/17 11:25 Total Creatine Kinase 25 U/L (26-192) Random Glucose 108 MG/DL (74-106) Calcium Level 8.3 MG/DL (8.5-10.1) Sodium Level 132 MEQ/L (136-145) Potassium Level 3.3 MEQ/L (3.5-5.1) Chloride Level 94 MEQ/L (98-107) Estimat Glomerular Filtration Rate 83 ML/MIN (>89) C-Reactive Protein 16.80 MG/DL (0.00-0.30) Imaging Last Impressions Chest X-Ray 01/31/17 0000 Signed Impressions: Service Date/Time: Tuesday, January 31, 2017 14:17 - CONCLUSION: Stable chronic changes as detailed above. Cricket South Jr., MD CT Angiography 01/31/17 0000 Signed Impressions: Service Date/Time: Tuesday, January 31, 2017 21:51 - CONCLUSION: 1. No evidence of pulmonary embolism 2. Parenchymal changes in the medial right upper lung most likely related to post radiation therapy. 3. Parenchymal changes in the right middle lobe. 4. Scarring in both apices. 5. Bilateral chronic interstitial changes. Gutierrez Romero MD PE at Discharge GENERAL: Well-developed, well-nourished, in no acute distress. alert and orientated HEENT: Head is normocephalic without any lesions or masses noted. Facial features are symmetric. Eyes: Extraocular muscles are intact. Conjunctivae were clear NECK: Supple without any masses. Trachea midline no deviation. No JVD CARDIAC: Regular rhythm, regular rate. S1/S2 are heard. No murmurs gallops or rubs. LUNGS: Clear to auscultation bilaterally. No wheeze, rhonchi or rales. No use of accessory muscles on inspiration or expiration. ABDOMEN: Soft, nontender. Nondistended. Bowel sounds heard in all 4 quadrants. No organomegaly or masses. Negative rebound, negative guarding EXTREMITIES: No edema, pulses are equal bilaterally. No cyanosis or clubbing NEUROLOGY: Mood and affect appear appropriate. Cranial nerves II through XII grossly intact. Moving all extremities, speech is clear Hospital Course 81-year-old female who originally presented to hospital the request of her primary medical doctor for admission because of generalized weakness, febrile illness. He should initially had workup performed and did not indicate any leukocytosis, chest x-ray did indicate chronic stable changes, CT of chest did not indicate any pulmonary emboli, did show parenchymal changes in the right upper lung most likely related to post radiation therapy. Patient was monitored in the hospital, physical therapy evaluated patient and recommended that she should receive some outpatient home health care. Patient was doing well and was seen by her addiction medicine physician who indicated no antibiotics at this time unless she develops fever or clinically worsened. Patient did have a fever 101.5. Workup was done with cultures, influenza testing, strep pneumonia testing, Legionella testing. Which were all negative. Urine culture was unremarkable for any infection. Dr. salas consulted infectious disease who evaluated the patient and recommended follow-up with CRP because of recent dental procedure done a month ago, however she did undergo echocardiogram at Dr. Garcia's office after that. Dr. salas indicated patient should receive at least 7 days with Levaquin upon discharge. Infectious disease physician recommended patient should follow-up with Dr. Garcia for the elevated CRP. Patient clinically stable and very eager to go home. Will plan discharge accordingly. Pt Condition on Discharge: Stable Discharge Disposition: Disch w/ Home Health Serv Discharge Time: > 30 minutes Discharge Instructions DIET: Follow Instructions for: As Tolerated, No Restrictions Activities you can perform: Regular-No Restrictions Follow up Referrals: PCP Follow-up - 1 Week Pulmonology - 2 Weeks with Ben Salas MD New Medications: Levofloxacin (Levaquin) 750 Mg Tablet 750 MG PO DAILY@1100 for Infection, #5 TAB Continued Medications: Amlodipine (Amlodipine) 5 Mg Tab 5 MG PO DAILY for Blood Pressure Management, #30 TAB 0 Refills Ascorbic Acid (Vitamin C) 250 Mg Tab 250 MG PO for Nutritional Supplement, TAB 0 Refills Calcium Carbonate-Vitamin D Chew (Caltrate 600+D Chew) 600-400 Mg-Unit Chew 1 TAB PO DAILY for Nutritional Supplement, EA 0 Refills Cholecalciferol (Vitamin D-3) 1,000 Unit Cap 1 TAB PO DAILY Clonazepam (Clonazepam) 1 Mg Tab 1 MG PO HS PRN for RESTLESSNESS, #60 TAB 0 Refills Denosumab Inj (Prolia Inj) 60 Mg/Ml Inj 60 MG SQ Q180D, VIAL 0 Refills Lisinopril (Lisinopril) 20 Mg Tab 20 MG PO BID, #30 TAB 0 Refills Metoprolol Tartrate (Metoprolol Tartrate) 50 Mg Tab 50 MG PO BID, #60 TAB 0 Refills Multivitamin (Once Daily) 1 Each Tablet 1 CAP PO DAILY Moreno Rico Feb 03, 2017 13:40
== END 2017-02-03 15:21 | disposition home health service (06) | DRG 864 ==
LOC: PH5A 12:06
PROVIDERS: ADMIT Hospitalist; ATTEND Hospitalist
DX: R50.9 Fever, unspecified (principal); I50.9 Heart failure, unspecified; J44.9 Chronic obstructive pulmonary disease, unspecified; I11.0 Hypertensive heart disease with heart failure; R06.02 Shortness of breath; R53.1 Weakness; Z96.659 Presence of unspecified artificial knee joint; Z85.118 Personal history of other malignant neoplasm of bronchus and lung; Z87.01 Personal history of pneumonia (recurrent); Z92.21 Personal history of antineoplastic chemotherapy; Z92.3 Personal history of irradiation; Z87.891 Personal history of nicotine dependence
CPT/HCPCS: 71020; 71275; 80048; 80053; 81001; 82378; 82550; 83605; 83735; 84100; 84443; 85025; 85379; 86038; 86140; 87040; 87086; 87205; 87449; 87804; 94664; J1644; J7030; Q9967

== ENCOUNTER 2017-02-05 15:08 | Observation (INO) | payer MEDICARE, BC ==
[~2017-02-05 15:08] MED LIST changes: +LEVA750T9 PO
[2017-02-05 15:11] VITALS: BP 120/58; PULSE 97; RESP 16; TEMP 97.7; O2SAT 95
[2017-02-05 15:28] VITALS: RESP 18; O2SAT 96
[2017-02-05] MEDS ORDERED: RESP: ALBUTEROL 2.5 MG/IPRATROPIUM 0.5 MG NEB (SCH) INH ONE ×2 (15:30→16:30)
[2017-02-05] MEDS ORDERED: SODIUM CHLORIDE 0.9% FLUSH 10 ML FLUSH IVF PRN (15:30)
--- NOTE | 2017-02-05 15:31 | PD ---
HPI Chief Complaint: Respiratory Symptoms Time Seen by Provider: 15:19 Travel History International Travel<30 days: No Contact w/Intl Traveler<30days: No Traveled to known affect area: No History of Present Illness HPI Patient comes back to the emergency department being discharged from the hospital 2 days ago for pneumonia. Patient was discharged on Levaquin reports she is taking this as prescribed. Patient started her last dose this morning. Patient states she awoke toady she was feeling more short of breath and increased generalized weakness. Patient denies using any breathing treatments at home. Patient reports fever at home today states she took Tylenol for this. Denies any nausea, vomiting, chest pain, headache,tingling anywhere, loss or change in bowel or bladder, abdominal pain, or cough. PFSH Past Medical History Arthritis: Yes Asthma: No Autoimmune Disease: No Blood Disorders: No Anxiety: No Depression: No Heart Rhythm Problems: Yes Cancer: Yes (LUNG BREAST CERVICAL) Cardiovascular Problems: Yes Chemotherapy: Yes Chest Pain: No Congestive Heart Failure: No COPD: Yes Cerebrovascular Accident: No Diabetes: No Diminished Hearing: No Endocrine: No GERD: No Glaucoma: No Genitourinary: No Hepatitis: No Hiatal Hernia: No Hypertension: Yes Immune Disorder: No Implanted Vascular Access Dvce: Yes Kidney Stones: No Musculoskeletal: Yes Neurologic: No Psychiatric: No Reproductive: No Respiratory: Yes Immunizations Current: Yes (flu shot and pneumonia vaccine current 2014) Migraines: No Radiation Therapy: Yes Renal Failure: No Seizures: No Sickle Cell Disease: No Sleep Apnea: No Thyroid Disease: No Ulcer: No Past Surgical History Abdominal Surgery: Yes (APPENDIX) AICD: No Appendectomy: Yes Arteriovenous Shunt: No Body Medical Devices: L FOREARM PLATES AND PINS Cardiac Surgery: Yes (ABLATION FOR AFIB) Ear Surgery: No Endocrine Surgery: No Eye Surgery: Yes (CATARACT) Genitourinary Surgery: No Gynecologic Surgery: Yes (HYSTERECTOMY) Hysterectomy: Yes Insulin Pump: No Joint Replacement: No Oral Surgery: Yes (TEETH EXTRACTIONS) Pacemaker: No Thoracic Surgery: Yes (L BREAST LUMPECTOMY 1999, CHEMO AND RADIATION) Tonsillectomy: Yes Other Surgery: Yes (L LUMPECTOMY) Social History Alcohol Use: Yes (SMALL GLASS OF WINE WITH DINNER ) Tobacco Use: No (QUIT 35 YEARS AGO) Substance Use: No Allergies-Medications (Allergen,Severity, Reaction): Coded Allergies: amiodarone (Unverified Allergy, Severe, DESTROYED THYROID, 01/17/17) Reported Meds & Prescriptions Reported Meds & Active Scripts Active Levaquin (Levofloxacin) 750 Mg Tablet 750 Mg PO DAILY@1100 Reported Symbicort Inh (Budesonide/Formoterol Fumarate) 160-4.5 Mcg/Act Aero 1 Puff INH Q12HR Amlodipine (Amlodipine Besylate) 5 Mg Tab 5 Mg PO DAILY Clonazepam 1 Mg Tab 1 Mg PO HS PRN Vitamin C (Ascorbic Acid) 250 Mg Tab 250 Mg PO Prolia Inj (Denosumab) 60 Mg/Ml Inj 60 Mg SQ Q180D Once Daily (Multivitamin) 1 Each Tablet 1 Cap PO DAILY Vitamin D-3 (Cholecalciferol) 1,000 Unit Cap 1 Tab PO DAILY Caltrate 600+D Chew (Calcium Carbonate-Vitamin D Chew) 600-400 Mg-Unit Chew 1 Tab PO DAILY Lisinopril 20 Mg Tab 20 Mg PO BID Metoprolol Tartrate 50 Mg Tab 50 Mg PO BID Review of Systems Except as stated in HPI: all other systems reviewed are Neg Physical Exam Narrative GENERAL: Well-developed, well nourished, uncomfortable appearing, and non-ill appearing. SKIN: Focused skin assessment warm and dry. HEAD: Atraumatic. Normocephalic. EYES: Pupils equal and round. EOMI. No scleral icterus. No injection or drainage. ENT: No nasal bleeding or discharge. Mucous membranes pink and moist. NECK: Trachea midline. Supple. No nuclear rigidity. CARDIOVASCULAR: Regular rate and rhythm. No murmur appreciated. RESPIRATORY: No accessory muscle use. No respiratory distress. Crackles in left lower lobe. Able to speak in full sentences without difficulty. GASTROINTESTINAL: Abdomen soft, non-tender, nondistended, and no guarding. Hepatic and splenic margins not palpable. Normal bowel sounds 4. No pulsatile mass. MUSCULOSKELETAL: No obvious deformities. No clubbing. No cyanosis. No edema. Full range of motion. NEUROLOGICAL: Awake and alert. No obvious cranial nerve deficits. Motor grossly within normal limits. Normal speech. PSYCHIATRIC: Appropriate mood and affect; insight and judgment normal. Data Data Last Documented VS Vital Signs Date Time Temp Pulse Resp B/P (MAP) Pulse Ox O2 Delivery O2 Flow Rate FiO2 02/05/17 15:39 83 18 97 Room Air 02/05/17 15:28 02/05/17 15:11 97.7 Orders Orders Complete Blood Count With Diff (02/05/17 15:25) Basic Metabolic Panel (Bmp) (02/05/17 15:25) B-Type Natriuretic Peptide (02/05/17 15:25) Act Partial Throm Time (Ptt) (02/05/17 15:25) Prothrombin Time / Inr (Pt) (02/05/17 15:25) Magnesium (Mg) (02/05/17 15:25) Ckmb (Isoenzyme) Profile (02/05/17 15:25) Troponin I (02/05/17 15:25) Iv Access Insert/Monitor (02/05/17:) Electrocardiogram (02/05/17:) Ecg Monitoring (02/05/17:) Oximetry (02/05/17:) Oxygen Administration (02/05/17:) Chest, Single Ap (02/05/17 15:25) Sodium Chloride 0.9% Flush (Ns Flush) (02/05/17 15:30) Albuterol-Ipratropium Neb (Duoneb Neb) (02/05/17 15:30) Albuterol-Ipratropium Neb (Duoneb Neb) (02/05/17 16:30) Methylprednisolone So Succ Inj (Solumedr (02/05/17 16:30) Comprehensive Metabolic Panel (02/06/17 06:00) Free Thyroxine (T4) (02/06/17 06:00) Hemoglobin (Hgb) A1c (02/06/17 06:00) Magnesium (Mg) (02/06/17 06:00) Phosphorus (Po4) (02/06/17 06:00) Thyroid Stimulating Hormone (02/06/17 06:00) Complete Blood Count With Diff (02/06/17 06:00) Admit Order (Ed Use Only) (02/05/17 17:11) Labs Laboratory Tests Test 02/05/17 15:36 White Blood Count 7.8 TH/MM3 Red Blood Count 3.75 MIL/MM3 Hemoglobin 11.4 GM/DL Hematocrit 33.1 % Mean Corpuscular Volume 88.3 FL Mean Corpuscular Hemoglobin 30.4 PG Mean Corpuscular Hemoglobin Concent 34.4 % Red Cell Distribution Width 13.9 % Platelet Count 277 TH/MM3 Mean Platelet Volume 6.9 FL Neutrophils (%) (Auto) 80.7 % Lymphocytes (%) (Auto) 5.1 % Monocytes (%) (Auto) 5.6 % Eosinophils (%) (Auto) 7.9 % Basophils (%) (Auto) 0.7 % Neutrophils # (Auto) 6.3 TH/MM3 Lymphocytes # (Auto) 0.4 TH/MM3 Monocytes # (Auto) 0.4 TH/MM3 Eosinophils # (Auto) 0.6 TH/MM3 Basophils # (Auto) 0.1 TH/MM3 CBC Comment DIFF FINAL Differential Comment Prothrombin Time 11.1 SEC Prothromb Time International Ratio 1.0 RATIO Activated Partial Thromboplast Time 29.6 SEC Blood Urea Nitrogen 13 MG/DL Creatinine 0.90 MG/DL Random Glucose 102 MG/DL Calcium Level 8.8 MG/DL Magnesium Level 2.0 MG/DL Sodium Level 129 MEQ/L Potassium Level 3.7 MEQ/L Chloride Level 91 MEQ/L Carbon Dioxide Level 29.3 MEQ/L Anion Gap 9 MEQ/L Estimat Glomerular Filtration Rate 60 ML/MIN Total Creatine Kinase 45 U/L Troponin I LESS THAN 0.02 NG/ML B-Type Natriuretic Peptide 107 PG/ML MDM Medical Decision Making Medical Screen Exam Complete: Yes Emergency Medical Condition: Yes Interpretation(s) EKG reviewed by Dr. Aguirre shows sinus rhythm with PVCs with a ventricular rate of 89. No STEMI. Chest x-ray read by the radiologist shows: Stable appearance of chronic scarring and no acute cardiopulmonary change. Differential Diagnosis Pneumonia, COPD exacerbation, CHF, failed outpatient therapy, pleural effusion, pneumothorax, acute coronary syndrome, other Narrative Course Patient was seen and examined. Initial laboratory radiological studies were ordered. IV was established patient was placed on continuous cardiac monitoring. A DuoNeb was ordered. 1612 patient reassessed reports improvement of symptoms status post breathing treatment, still feeling weak. Patient's lungs sound clearer but still some decreased breath sounds throughout. We'll order additional breathing treatment along with dose of steroids. Discussed all findings and plan of care with patient, who is agreeable for admission back to the hospital. All questions were answered. Discussed patient with Dr. Aguirre, who is in agreement with plan of care and disposition. Discussed patient with hospitalist who is agreeable to admit the patient. Patient remained stable throughout ED course. Physician Communication Physician Communication [address] Liu, who is agreeable to admit the patient. Diagnosis Primary Impression: COPD (chronic obstructive pulmonary disease) Qualified Codes: J44.1 - Chronic obstructive pulmonary disease with (acute) exacerbation Additional Impression: Generalized weakness Admitting Information Admitting Physician Requests: Observation Condition: Stable James Wesley Feb 05, 2017 15:31
[2017-02-05] MEDS ORDERED: SYMB160A INH (15:49)
[2017-02-05 15:58] LABS: AUTOMATED NEUTROPHIL # 6.3 TH/MM3 (1.8-7.7); BASOPHIL # 0.1 TH/MM3 (0-0.2); BASOPHIL % 0.7 % (0.0-2.0); EOSINOPHIL # 0.6 TH/MM3 (0-0.4); EOSINOPHIL % 7.9 % (0.0-4.0); HEMATOCRIT 33.1 % (35.0-46.0); HEMO FLAGS DIFF FINAL; LYMPH % 5.1 % (9.0-44.0); LYMPHOCYTE # 0.4 TH/MM3 (1.0-4.8); MEAN CELL VOLUME 88.3 FL (80.0-100.0); MEAN CORPUSCULAR HEMOGLOBIN 30.4 PG (27.0-34.0); MEAN CORPUSCULAR HGB CONC 34.4 % (32.0-36.0); MONO % 5.6 % (0.0-8.0); NEUT % 80.7 % (16.0-70.0); PLATELET COUNT 277 TH/MM3 (150-450); RED BLOOD COUNT 3.75 MIL/MM3 (4.00-5.30); RED CELL DISTRIBUTION WIDTH 13.9 % (11.6-17.2); WHITE BLOOD COUNT 7.8 TH/MM3 (4.0-11.0)
[2017-02-05 16:09] LABS: APTT (PATIENT) 29.6 SEC (24.3-30.1); PROTHROMBIN TIME - PATIENT 11.1 SEC (9.8-11.6)
--- NOTE | 2017-02-05 16:12 | RADRPT ---
EXAM DATE/TIME: 02/05/2017 15:50 [facility] COMPARISON: CT PULMONARY ANGIOGRAM, January 31, 2017, 21:51. CHEST PA & LAT, January 31, 2017, 14:17. CHEST SINGL E AP, January 22, 2015, 2:10. INDICATIONS : Short of Breath MEDICAL HISTORY : Hypertension, Chronic obstructive pulmonary disease, Carcinoma, lung. Carcinoma , breast. Carcinoma, cervical. SURGICAL HISTORY : Appendectomy. Hysterectomy. Cardiac ablation. ENCOUNTER: Initial ACUITY: 1 day PAIN SCORE: 0/10 LOCATION: Bilateral chest FINDINGS: A single view of the chest demonstrates the lungs to be symmetrically aerated without evidence of mas s, infiltrate or effusion. Chronic scarring is again noted in the suprahilar regions which is stable in appearance. There is mild cephalization of the hilar regions. Scarring is noted the right lung bas e. There are multiple surgical clips and ranjana in the left axilla. The cardiomediastinal contours a re unremarkable. Osseous structures are intact. CONCLUSION: Stable appearance of chronic scarring and no acute cardiopulmonary change. Jean-Pierre Welch MD on February 05, 2017 at 16:09 Board Certified Radiologist. This report was verified electronically.
[2017-02-05 16:16] LABS: ANION GAP 9 MEQ/L (5-15); BICARBONATE 29.3 MEQ/L (21.0-32.0); BLOOD UREA NITROGEN 13 MG/DL (7-18); CHLORIDE 91 MEQ/L (98-107); GLOMERULAR FILTRATION RATE 60 ML/MIN (>89); POTASSIUM 3.7 MEQ/L (3.5-5.1); SODIUM (NA) 129 MEQ/L (136-145)
[2017-02-05 16:18] LABS: CREATINE KINASE 45 U/L (26-192)
[2017-02-05] MEDS ORDERED: methylPREDNISolone SOD SUCC 125 MG/2 ML VIAL IV PUSH SCH (16:30)
[2017-02-05] MEDS ORDERED: SODIUM CHLORIDE 0.9% FLUSH 10 ML FLUSH IV FLUSH PRN ×3 (17:15→17:30)
[2017-02-05] MEDS ORDERED: PROCHLORPERAZINE 25 MG SUPP PR PRN (17:15)
[2017-02-05] MEDS ORDERED: ONDANSETRON HCL 4 MG/2 ML VIAL IVP PRN ×2 (17:15→17:30)
[2017-02-05] MEDS ORDERED: ACETAMINOPHEN 325 MG TAB PO PRN ×3 (17:15→17:30)
[2017-02-05] MEDS ORDERED: RESP: ALBUTEROL 2.5 MG/IPRATROPIUM 0.5 MG NEB (PRN) NEB (17:15)
[2017-02-05] MEDS ORDERED: LACTULOSE SYRUP 20 GM/30 ML CUP PO PRN (17:30)
[2017-02-05] MEDS ORDERED: ACETAMINOPHEN/HYDROcodone 325 MG/5 MG TAB PO PRN (17:30)
[2017-02-05] MEDS ORDERED: PROCHLORPERAZINE 25 MG SUPP RECTAL PRN (17:30)
[2017-02-05] MEDS ORDERED: MAGNESIUM HYDROXIDE SUSP 30 ML CUP PO PRN (17:30)
[2017-02-05] MEDS ORDERED: SENNOSIDES 8.6 MG TAB PO PRN (17:30)
[2017-02-05] MEDS ORDERED: ACETAMINOPHEN/HYDROcodone 325 MG/10 MG TAB PO PRN (17:30)
[2017-02-05] MEDS ORDERED: MORPHINE SULFATE 4 MG/ML INJ IV PRN ×2 (17:30)
[2017-02-05] MEDS ORDERED: BISACODYL 10 MG SUPP RECTAL PRN (17:30)
[2017-02-05] MEDS ORDERED: NALOXONE HCL 0.4 MG/ML AMP IV PRN (17:30)
[2017-02-05 18:16] LABS: BLOOD, URINE NEG (NEG); COMMENT (UR) CULT NOT INDICATED; CULTURE IF INDICATED CULT NOT INDICATED; GLUCOSE,URINE NEG (NEG); HYALINE CAST, URINE 1 /lpf (RARE); KETONE, URINE 10 mg/dL (NEG); MUCUS URINE FEW /lpf (OCC); NITRITE,URINE NEG (NEG); URINE COLOR YELLOW (YELLW/STRAW)
[2017-02-05] MEDS: methylPREDNISolone SOD SUCC 125 MG/2 ML VIAL IVP SCH (18:20)
[2017-02-05] MEDS: ENOXAPARIN SODIUM 40 MG/0.4 ML SYRINGE SQ SCH (18:21)
--- NOTE | 2017-02-05 18:55 | HHI.HP ---
[facility] Abel Mann MD Admission Diagnosis COPD exacerbation, generalized weakness Diagnoses: (1) COPD (chronic obstructive pulmonary disease) Diagnosis: Principal (2) Generalized weakness Diagnosis: Principal (3) History of lung cancer Diagnosis: Secondary (4) History of pneumonia Diagnosis: Secondary (5) Hypertension Diagnosis: Secondary Chief Complaint: INCreasing shortness of breath Travel History International Travel<30 Days: No Contact w/Intl Traveler <30 Da: No Traveled to Known Affected Are: No History of Present Illness Patient is an 81-year-old female, Who comes back to the emergency department after being discharged from [facility] 2 days ago for pneumonia. Patient was discharged on Levaquin. Reports she is taking this as prescribed. Patient states she started her last dose this morning. Patient states she awoke today she was feeling more short of breath and increased generalized weakness. Patient denies using any breathing treatments at home. Patient reports fever at home today states she took Tylenol for this. Denies any nausea denies any vomiting denies any chest pain denies any headache denies anything tingling anywhere denies any loss or change in bowel or bladder denies any abdominal pain has an occasional cough Patient will be placed on steroids will be given breathing treatments will be given Mucinex and DuoNeb's and will need follow tonight and observed Get a.m. labs Review of Systems Constitutional: COMPLAINS OF: Diaphoretic episodes, Fatigue, Fever, DENIES: Weight gain, Weight loss, Chills, Dizziness, Change in appetite Endocrine: DENIES: Abnorml menstrual pattern, Heat/cold intolerance Eyes: DENIES: Blurred vision, Diplopia, Eye inflammation, Eye pain Ears, nose, mouth, throat: DENIES: Tinnitus, Hearing loss, Vertigo, Nasal discharge Respiratory: COMPLAINS OF: Cough, Shortness of breath, DENIES: Apneas, Snoring , Wheezing, Hemoptysis, Sputum production Cardiovascular: COMPLAINS OF: Dyspnea on Exertion, DENIES: Chest pain, Palpitations, Syncope, PND, Lower Extremity Edema Gastrointestinal: DENIES: Abdominal pain, Black stools, Bloody stools, Constipation, Diarrhea, Nausea Genitourinary: DENIES: Abnormal vaginal bleeding, Dysmenorrhea, Dyspareunia Musculoskeletal: DENIES: Joint pain, Muscle aches, Stiffness, Joint Swelling, Back pain, Neck pain Integumentary: DENIES: Abnormal pigmentation, Pruritus, Rash, Nail changes Hematologic/lymphatic: DENIES: Bruising, Lymphadenopathy Immunologic/allergic: DENIES: Eczema, Urticaria Neurologic: DENIES: Abnormal gait, Headache, Localized weakness, Paresthesias, Seizures Psychiatric: COMPLAINS OF: Anxiety, DENIES: Confusion, Mood changes, Depression , Hallucinations, Agitation Past Family Social History Past Medical History Arthritis: Yes Asthma: No Autoimmune Disease: No Blood Disorders: No Anxiety: No Depression: No Heart Rhythm Problems: Yes Cancer: Yes (LUNG BREAST CERVICAL) Cardiovascular Problems: Yes Chemotherapy: Yes Chest Pain: No Congestive Heart Failure: No COPD: Yes Cerebrovascular Accident: No Diabetes: No Diminished Hearing: No Endocrine: No GERD: No Glaucoma: No Genitourinary: No Hepatitis: No Hiatal Hernia: No Hypertension: Yes Immune Disorder: No Implanted Vascular Access Dvce: Yes Kidney Stones: No Musculoskeletal: Yes Neurologic: No Psychiatric: No Reproductive: No Respiratory: Yes Immunizations Current: Yes (flu shot and pneumonia vaccine current 2014) Migraines: No Radiation Therapy: Yes Renal Failure: No Seizures: No Sickle Cell Disease: No Sleep Apnea: No Thyroid Disease: No Ulcer: No Past Surgical History Abdominal Surgery: Yes (APPENDIX) AICD: No Appendectomy: Yes Arteriovenous Shunt: No Body Medical Devices: L FOREARM PLATES AND PINS Cardiac Surgery: Yes (ABLATION FOR AFIB) Ear Surgery: No Endocrine Surgery: No Eye Surgery: Yes (CATARACT) Genitourinary Surgery: No Gynecologic Surgery: Yes (HYSTERECTOMY) Hysterectomy: Yes Insulin Pump: No Joint Replacement: No Oral Surgery: Yes (TEETH EXTRACTIONS) Pacemaker: No Thoracic Surgery: Yes (L BREAST LUMPECTOMY 1999, CHEMO AND RADIATION) Tonsillectomy: Yes Other Surgery: Yes (L LUMPECTOMY) Reported Medications Reported Meds & Active Scripts Active Levaquin (Levofloxacin) 750 Mg Tablet 750 Mg PO DAILY@1100 Reported Symbicort Inh (Budesonide/Formoterol Fumarate) 160-4.5 Mcg/Act Aero 1 Puff INH Q12HR Amlodipine (Amlodipine Besylate) 5 Mg Tab 5 Mg PO DAILY Clonazepam 1 Mg Tab 1 Mg PO HS PRN Vitamin C (Ascorbic Acid) 250 Mg Tab 250 Mg PO Prolia Inj (Denosumab) 60 Mg/Ml Inj 60 Mg SQ Q180D Once Daily (Multivitamin) 1 Each Tablet 1 Cap PO DAILY Vitamin D-3 (Cholecalciferol) 1,000 Unit Cap 1 Tab PO DAILY Caltrate 600+D Chew (Calcium Carbonate-Vitamin D Chew) 600-400 Mg-Unit Chew 1 Tab PO DAILY Lisinopril 20 Mg Tab 20 Mg PO BID Metoprolol Tartrate 50 Mg Tab 50 Mg PO BID Allergies: Coded Allergies: amiodarone (Unverified Allergy, Severe, DESTROYED THYROID, 01/17/17) Active Ordered Medications Current Medications Sodium Chloride (NS Flush) 2 ml UNSCH PRN IVF FLUSH AFTER USING IV ACCESS; Start 02/05/17 at 15:30; Stop 02/05/17 at 17:18; Status DC Albuterol/ Ipratropium (Duoneb Neb) 1 ampule ONCE ONCE INH Last administered on 02/05/17 15:55; Start 02/05/17 at 15:30; Stop 02/05/17 at 15:31; Status DC Albuterol/ Ipratropium (Duoneb Neb) 1 ampule ONCE ONCE INH Last administered on 02/05/17 17:08; Start 02/05/17 at 16:30; Stop 02/05/17 at 16:31; Status DC Methylprednisolone Sodium Succinate (SoluMEDROL INJ) 60 mg ONCE IV PUSH Last administered on 02/05/17 16:26; Start 02/05/17 at 16:30 Amlodipine Besylate (Norvasc) 5 mg DAILY PO ; Start 02/06/17 at 09:00 Budesonide/ Formoterol Fumarate (Symbicort 160-4.5 Inh) 1 puff Q12HR INH ; Start 02/05/17 at 21:00 Clonazepam (KlonoPIN) 1 mg HS PRN PO RESTLESSNESS; Start 02/05/17 at 17:15 Levofloxacin (Levaquin) 750 mg DAILY@1100 PO ; Start 02/06/17 at 11:00 Lisinopril (Prinivil) 20 mg BID PO ; Start 02/05/17 at 21:00 Metoprolol Tartrate (Lopressor) 50 mg BID PO ; Start 02/05/17 at 21:00 Calcium/Vitamin D (Oscal-D 250-125) 500 mg DAILY PO ; Start 02/06/17 at 09:00 Cholecalciferol (Vitamin D3) 1,000 units DAILY PO ; Start 02/06/17 at 09:00 Multivitamins (Theragran) 1 tab DAILY PO ; Start 02/06/17 at 09:00 Albuterol/ Ipratropium (Duoneb Neb) 1 ampule Q4HR NEB PRN NEB sob; Start at 17:15 Albuterol/ Ipratropium (Duoneb Neb) 1 ampule Q6HR WHILE AWAKE NEB NEB ; Start 02/05/17 at 20:00 Guaifenesin (Mucinex Er) 600 mg BID PO ; Start 02/05/17 at 21:00 Sodium Chloride (NS Flush) 2 ml UNSCH PRN IV FLUSH FLUSH AFTER USING IV ACCESS ; Start 02/05/17 at 17:15; Stop 02/05/17 at 17:25; Status DC Sodium Chloride (NS Flush) 2 ml BID IV FLUSH ; Start 02/05/17 at 21:00; Stop 02/05 at 21:00; Status DC Acetaminophen (Tylenol) 650 mg Q4H PRN PO TEMP > 100.4; Start 02/05/17 at 17:15 Ondansetron HCl (Zofran Inj) 4 mg Q6H PRN IVP NAUSEA OR VOMITING; Start at 17:15; Stop 02/05/17 at 17:25; Status DC Prochlorperazine (Compazine Supp) 25 mg Q12H PRN [place] NAUSEA OR VOMITING; Start 02/05/17 at 17:15; Stop 02/05/17 at 17:25; Status DC Sodium Chloride (NS Flush) 2 ml UNSCH PRN IV FLUSH FLUSH AFTER USING IV ACCESS ; Start 02/05/17 at 17:30; Stop 02/05/17 at 17:30; Status DC Sodium Chloride (NS Flush) 2 ml BID IV FLUSH ; Start 02/05/17 at 21:00; Stop 02/05 at 21:00; Status DC Acetaminophen (Tylenol) 650 mg Q4H PRN PO TEMP > 100.4; Start 02/05/17 at 17:30 ; Stop 02/05/17 at 17:30; Status DC Ondansetron HCl (Zofran Inj) 4 mg Q6H PRN IVP NAUSEA OR VOMITING; Start at 17:30 Prochlorperazine (Compazine Supp) 25 mg Q12H PRN RECTAL NAUSEA OR VOMITING; Start 02/05/17 at 17:30 Enoxaparin Sodium (Lovenox Inj) 40 mg Q24H SQ Last administered on 02/05/17t 18: 21; Start 02/05/17 at 18:00 Acetaminophen (Tylenol) 650 mg Q6H PRN PO PAIN SCALE 1 TO 2; Start 02/05/17 at 17:30 Acetaminophen/ Hydrocodone Bitart ([place] 5-325 Mg) 1 tab Q4H PRN PO PAIN SCALE 3 TO 5; Start 02/05/17 at 17:30 Acetaminophen/ Hydrocodone Bitart ([place] 10-325 Mg) 1 tab Q4H PRN PO PAIN SCALE 6 TO 10; Start 02/05/17 at 17:30 Morphine Sulfate (Morphine Inj) 2 mg Q3H PRN IV Pain 3-5; if unable to take PO ; Start 02/05/17 at 17:30 Morphine Sulfate (Morphine Inj) 4 mg Q3H PRN IV Pain 6-10;if unable to take PO ; Start 02/05/17 at 17:30 Naloxone HCl (Narcan Inj) 0.4 mg UNSCH PRN IV SEE LABEL COMMENTS; Start at 17:30 Senna/Docusate Sodium (Gena-Colace) 1 tab BID PO ; Start 02/05/17 at 21:00 Magnesium Hydroxide (Milk Of Magnesia Liq) 30 ml Q12H PRN PO MILD - MODERATE CONSTIPATION; Start 02/05/17 at 17:30 Sennosides (Senokot) 17.2 mg Q12H PRN PO MODERATE - SEVERE CONSTIPATION; Start 02/05/17 at 17:30 Bisacodyl (Dulcolax Supp) 10 mg DAILY PRN RECTAL SEVERE CONSITIPATION; Start at 17:30 Lactulose (Lactulose Liq) 30 ml DAILY PRN PO SEVERE CONSITIPATION; Start at 17:30 Sodium Chloride (NS Flush) 2 ml BID IV FLUSH ; Start 02/05/17 at 21:00 Sodium Chloride (NS Flush) 2 ml UNSCH PRN IV FLUSH FLUSH AFTER USING IV ACCESS ; Start 02/05/17 at 17:30 Budesonide/ Formoterol Fumarate (Symbicort 160-4.5 Inh) 2 puff Q12HR INH ; Start 02/05/17 at 21:00; Stop 02/05/17 at 21:00; Status DC Methylprednisolone Sodium Succinate (SoluMEDROL INJ) 60 mg Q6H IVP Last administered on 02/05/17t 18:20; Start 02/05/17 at 18:00 Family History Breast cancer hypertension Social History Glass of wine with dinner History tobacco quit 35 years ago Denies any illicits Physical Exam Vital Signs Vital Signs Date Time Temp Pulse Resp B/P (MAP) Pulse Ox O2 Delivery O2 Flow Rate FiO2 02/05/17 15:39 83 18 97 Room Air 02/05/17 15:28 96 Room Air 02/05/17 15:28 18 96 Room Air 02/05/17 15:11 97.7 97 16 120/58 (78) 95 Physical Exam GENERAL: This is a well-nourished, well-developed patient, in no apparent distress. Somewhat anxious SKIN: No rashes, ecchymoses or lesions. Cool and dry. HEAD: Atraumatic. Normocephalic. No temporal or scalp tenderness. EYES: Pupils equal round and reactive. Extraocular motions intact. No scleral icterus. No injection or drainage. ENT: Nose without bleeding, purulent drainage or septal hematoma. Throat without erythema, tonsillar hypertrophy or exudate. Uvula midline. Airway patent. NECK: Trachea midline. No JVD or lymphadenopathy. Supple, nontender, no meningeal signs. CARDIOVASCULAR: Regular rate and rhythm without murmurs, gallops, or rubs. RESPIRATORY: Clear to auscultation decreased breath sounds bilaterally. Breath sounds equal bilaterally. No rales, or rhonchi. Few scattered we discussed GASTROINTESTINAL: Abdomen soft, non-tender, nondistended. No hepato-splenomegaly , or palpable masses. No guarding. MUSCULOSKELETAL: Extremities without clubbing, cyanosis, or edema. No joint tenderness, effusion, or edema noted. No calf tenderness. Negative Homans sign bilaterally. NEUROLOGICAL: Awake and alert. Cranial nerves II through XII intact. Motor and sensory grossly within normal limits. Five out of 5 muscle strength in all muscle groups. Normal speech. Insight and judgment is good Mood and behaviors appropriate Laboratory Laboratory Tests Test 02/05/17 15:36 02/05/17 17:39 White Blood Count 7.8 Red Blood Count 3.75 Hemoglobin 11.4 Hematocrit 33.1 Mean Corpuscular Volume 88.3 Mean Corpuscular Hemoglobin 30.4 Mean Corpuscular Hemoglobin Concent 34.4 Red Cell Distribution Width 13.9 Platelet Count 277 Mean Platelet Volume 6.9 Neutrophils (%) (Auto) 80.7 Lymphocytes (%) (Auto) 5.1 Monocytes (%) (Auto) 5.6 Eosinophils (%) (Auto) 7.9 Basophils (%) (Auto) 0.7 Neutrophils # (Auto) 6.3 Lymphocytes # (Auto) 0.4 Monocytes # (Auto) 0.4 Eosinophils # (Auto) 0.6 Basophils # (Auto) 0.1 CBC Comment DIFF FINAL Differential Comment Prothrombin Time 11.1 Prothromb Time International Ratio 1.0 Activated Partial Thromboplast Time 29.6 Blood Urea Nitrogen 13 Creatinine 0.90 Random Glucose 102 Calcium Level 8.8 Magnesium Level 2.0 Sodium Level 129 Potassium Level 3.7 Chloride Level 91 Carbon Dioxide Level 29.3 Anion Gap 9 Estimat Glomerular Filtration Rate 60 Total Creatine Kinase 45 Troponin I LESS THAN 0.02 B-Type Natriuretic Peptide 107 Urine Color YELLOW Urine Turbidity CLEAR Urine pH 6.0 Urine Specific [place] 1.011 Urine Protein TRACE Urine Glucose (UA) NEG Urine Ketones 10 Urine Occult Blood NEG Urine Nitrite NEG Urine Bilirubin NEG Urine Urobilinogen LESS THAN 2.0 Urine Leukocyte Esterase NEG Urine RBC 1 Urine WBC 4 Urine Hyaline Casts 1 Urine Mucus FEW Microscopic Urinalysis Comment CULT NOT INDICATED Result Diagram: 02/05/17 1536 02/05/17 1536 Imaging Last Impressions Chest X-Ray 02/05/17 1525 Signed Impressions: Service Date/Time: Sunday, February 05, 2017 15:50 - CONCLUSION: Stable appearance of chronic scarring and no acute cardiopulmonary change. MD Dustin Obrien VTE Risk Assessment Dustin VTE Risk Assessment: Mod/High Risk (score >= 2) Caprini Risk Assessment Model Point Value = 1 Point Value = 2 Point Value = 3 Point Value = 5 Age 41-60 Minor surgery BMI > 25 kg/m2 Swollen legs Varicose veins or History of unexplained or recurrent spontaneous Oral contraceptives or hormone replacement Sepsis (< 1 month) Serious lung disease, including pneumonia (< 1 month) Abnormal pulmonary function Acute myocardial infarction Congestive heart failure (< 1 month) History of inflammatory bowel disease Medical patient at bed rest Age 61-74 Arthroscopic surgery Major open surgery (> 45 min) Laparoscopic surgery (> 45 min) Malignancy Confined to bed (> 72 hours) Immobilizing plaster cast Central venous access Age >= 75 History of VTE Family history of VTE Factor V Leiden Prothrombin [id number] Lupus anticoagulant Anticardiolipin antibodies Elevated serum homocysteine Heparin-induced thrombocytopenia Other congenital or acquired thrombophilia Stroke (< 1 month) Elective arthroplasty Hip, pelvis, or leg fracture Acute spinal cord injury (< 1 month) Prophylaxis Regimen Total Risk Factor Score Risk Level Prophylaxis Regimen 0-1 Low Early ambulation 2 Moderate Order ONE of the following: *Sequential Compression Device (SCD) *Heparin 5000 units SQ BID 3-4 Higher Order ONE of the following medications: *Heparin 5000 units SQ TID *Enoxaparin/Lovenox 40 mg SQ daily (WT < 150 kg, CrCl > 30 mL/min) *Enoxaparin/Lovenox 30 mg SQ daily (WT < 150 kg, CrCl > 10-29 mL/min) *Enoxaparin/Lovenox 30 mg SQ BID (WT < 150 kg, CrCl > 30 mL/min) AND/OR *Sequential Compression Device (SCD) 5 or more Highest Order ONE of the following medications: *Heparin 5000 units SQ TID (Preferred with Epidurals) *Enoxaparin/Lovenox 40 mg SQ daily (WT < 150 kg, CrCl > 30 mL/min) *Enoxaparin/Lovenox 30 mg SQ daily (WT < 150 kg, CrCl > 10-29 mL/min) *Enoxaparin/Lovenox 30 mg SQ BID (WT < 150 kg, CrCl > 30 mL/min) AND *Sequential Compression Device (SCD) Assessment and Plan Problem List: (1) History of lung cancer ICD Code: Z85.118 - Personal history of other malignant neoplasm of bronchus and lung (2) History of pneumonia ICD Code: Z87.01 - Personal history of pneumonia (recurrent) (3) Hypertension ICD Code: I10 - Hypertension Status: Chronic (4) COPD (chronic obstructive pulmonary disease) ICD Code: J44.9 - Chronic obstructive pulmonary disease, unspecified (5) Fever ICD Code: R50.9 - Fever, unspecified Status: Acute (6) Generalized weakness ICD Code: R53.1 - Weakness Assessment and Plan COPD versus congestive heart failure exacerbation. We'll continue on home medications. We'll continue on steroids Solu-Medrol as well as Mucinex and DuoNeb's And her Symbicort We'll get a.m. labs Continue on Levaquin We'll get physical therapy and occupational therapy to eval and treat regarding generalized weakness May need a walk test We'll probably need a nebulizer for home use Discussed with patient and RN Hypertension continue on her home medications Watch fluid balance and fluid intakes Check a BNP A.m. labs Code Status Full code Discussed Condition With Have discussed with the ER physician have discussed with the PA have discussed with patient have discussed with the RN and her granddaughter Problem Qualifiers (1) COPD (chronic obstructive pulmonary disease): Qualified Codes: J44.1 - Chronic obstructive pulmonary disease with (acute) exacerbation Enmanuel Liu DO Feb 05, 2017 18:55
[2017-02-05] MEDS: RESP: ALBUTEROL 2.5 MG/IPRATROPIUM 0.5 MG NEB (SCH) NEB (20:04)
[2017-02-05 20:40] VITALS: BP 130/59; PULSE 98; RESP 18; TEMP 97.6; O2SAT 95
[2017-02-05] MEDS ORDERED: BUDESONIDE-FORMOTEROL 160/4.5 MCG INHALER INH SCH (21:00)
[2017-02-05] MEDS ORDERED: SODIUM CHLORIDE 0.9% FLUSH 10 ML FLUSH IV FLUSH SCH ×2 (21:00)
[2017-02-05] MEDS: SODIUM CHLORIDE 0.9% FLUSH 10 ML FLUSH IV FLUSH SCH (21:00)
[2017-02-05] MEDS: clonazePAM 1 MG TAB PO PRN (21:56)
[2017-02-05] MEDS: LISINOPRIL 20 MG TAB PO SCH (21:56)
[2017-02-05] MEDS: METOPROLOL TARTRATE 50 MG TAB PO SCH (21:56)
[2017-02-05] MEDS: DOCUSATE SODIUM 50 MG/SENNA 8.6 MG TAB PO SCH (21:56)
[2017-02-05] MEDS: guaiFENesin E.R. 600 MG TAB PO SCH (21:56)
[2017-02-05] MEDS: BUDESONIDE-FORMOTEROL 160/4.5 MCG INHALER INH SCH (21:57)
[2017-02-05 22:09] LABS: CREATINE KINASE 25 U/L (26-192)
[2017-02-06] VITALS (13 sets, daily range): BP systolic 119–133; BP diastolic 56–63; PULSE 73–104; RESP 18–20; TEMP 97.5–98.9; O2SAT 94–100
[2017-02-06] MEDS: methylPREDNISolone SOD SUCC 125 MG/2 ML VIAL IVP SCH ×4 (01:37→18:44)
[2017-02-06 04:52] LABS: ALKALINE PHOSPHATASE 73 U/L (45-117); ALT (GPT) 20 U/L (10-53); ANION GAP 10 MEQ/L (5-15); AST (GOT) 12 U/L (15-37); BICARBONATE 27.8 MEQ/L (21.0-32.0); BLOOD UREA NITROGEN 15 MG/DL (7-18); CHLORIDE 93 MEQ/L (98-107); FREE T4 1.26 NG/DL (0.76-1.46); GLOMERULAR FILTRATION RATE 58 ML/MIN (>89); MAGNESIUM 2.3 MG/DL (1.5-2.5); POTASSIUM 3.1 MEQ/L (3.5-5.1); SODIUM (NA) 131 MEQ/L (136-145); TOTAL BILIRUBIN ADULT 0.3 MG/DL (0.2-1.0)
[2017-02-06 04:54] LABS: CREATINE KINASE 28 U/L (26-192)
[2017-02-06 07:36] LABS: AUTOMATED NEUTROPHIL # 3.9 TH/MM3 (1.8-7.7); BASOPHIL % 0.3 % (0.0-2.0); EOSINOPHIL % 0.1 % (0.0-4.0); HEMATOCRIT 33.1 % (35.0-46.0); HEMO FLAGS DIFF FINAL; LYMPH % 6.7 % (9.0-44.0); LYMPHOCYTE # 0.3 TH/MM3 (1.0-4.8); MEAN CELL VOLUME 89.1 FL (80.0-100.0); MEAN CORPUSCULAR HEMOGLOBIN 30.2 PG (27.0-34.0); MEAN CORPUSCULAR HGB CONC 33.9 % (32.0-36.0); MONO % 1.4 % (0.0-8.0); NEUT % 91.5 % (16.0-70.0); PLATELET COUNT 259 TH/MM3 (150-450); RED BLOOD COUNT 3.72 MIL/MM3 (4.00-5.30); RED CELL DISTRIBUTION WIDTH 14.1 % (11.6-17.2); WHITE BLOOD COUNT 4.3 TH/MM3 (4.0-11.0)
[2017-02-06] MEDS: RESP: ALBUTEROL 2.5 MG/IPRATROPIUM 0.5 MG NEB (SCH) NEB ×3 (07:37→20:31)
[2017-02-06] MEDS: MULTIVITAMIN TAB PO SCH (09:44)
[2017-02-06] MEDS: LISINOPRIL 20 MG TAB PO SCH ×2 (09:44→20:09)
[2017-02-06] MEDS: DOCUSATE SODIUM 50 MG/SENNA 8.6 MG TAB PO SCH ×2 (09:44→20:11)
[2017-02-06] MEDS: CHOLECALCIFEROL (VIT D3) 1000 UNIT TAB PO SCH (09:45)
[2017-02-06] MEDS: METOPROLOL TARTRATE 50 MG TAB PO SCH ×2 (09:45→20:09)
[2017-02-06] MEDS: LEVOFLOXACIN 750 MG TAB PO SCH (09:45)
[2017-02-06] MEDS: guaiFENesin E.R. 600 MG TAB PO SCH ×2 (09:45→20:09)
[2017-02-06] MEDS: CALCIUM/VITAMIN D 250 MG/125 U TAB PO SCH (09:45)
[2017-02-06] MEDS: amLODIPine BESYLATE 5 MG TAB PO SCH (09:45)
[2017-02-06] MEDS: SODIUM CHLORIDE 0.9% FLUSH 10 ML FLUSH IV FLUSH SCH ×2 (09:46→20:09)
[2017-02-06] MEDS: BUDESONIDE-FORMOTEROL 160/4.5 MCG INHALER INH SCH ×2 (09:46→20:08)
[2017-02-06] MEDS ORDERED: PNEUMOCOCCAL POLYVALENT INJ 25 MCG/0.5 ML SYR IM ONE (10:00)
[2017-02-06] MEDS ORDERED: INFLUENZA VIRUS VACCINE (QUADRIVALENT) 0.5 ML SYR IM ONE (10:00)
[2017-02-06 11:40] LABS: HEMOGLOBIN A1a 1.5 %; HEMOGLOBIN A1b 0.9 %; HEMOGLOBIN Ao 81.4 %; HEMOGLOBIN F 1.7 %; HEMOGLOBIN LA1C 3.2 %; HEMOGLOBIN P3 6.2 %
--- NOTE | 2017-02-06 17:33 | HHI.PR ---
Subjective Remarks Patient is an 81-year-old female, Who comes back to the emergency department after being discharged from [facility] 2 days ago for pneumonia. Patient was discharged on Levaquin. Reports she is taking this as prescribed. Patient states she started her last dose this morning. Patient states she awoke today she was feeling more short of breath and increased generalized weakness. Patient denies using any breathing treatments at home. Patient reports fever at home today states she took Tylenol for this. Denies any nausea denies any vomiting denies any chest pain denies any headache denies anything tingling anywhere denies any loss or change in bowel or bladder denies any abdominal pain has an occasional cough Patient will be placed on steroids will be given breathing treatments will be given Mucinex and DuoNeb's and will need follow tonight and observed Get a.m. labs 9- patient is breathing a little better. Discussed with patient and RN and her son and granddaughter We will need nebulizer at discharge as well as solution for it. We'll need steroids at discharge Will need Mucinex at discharge Will need antibiotics at discharge We'll do walk test and hopefully that will be negative and will not need oxygen if it is positive we'll get her oxygen A.m. labs Objective Vitals Vital Signs Date Time Temp Pulse Resp B/P (MAP) Pulse Ox O2 Delivery O2 Flow Rate FiO2 02/06/17 15:26 97.5 94 18 129/60 (83) 97 02/06/17 15:05 98 02/06/17 11:29 97.5 87 20 119/56 (77) 96 02/06/17 10:13 86 02/06/17 07:45 98.6 94 19 132/63 (86) 94 02/06/17 07:39 99 Nasal Cannula 3.00 02/06/17 03:06 98.9 73 18 121/59 (79) 100 02/06/17 00:08 98.1 87 18 121/56 (77) 100 02/05/17 23:14 18 02/05/17 20:40 97.6 98 18 130/59 (82) 95 I/O 02/05/17 02/05/17 02/05/17 02/06/17 02/06/17 02/06/17 07:00 15:00 23:00 07:00 15:00 23:00 Intake Total 200 ml Balance 200 ml Intake Oral 200 ml # Voids 1 Result Diagram: 02/06/17 0706 02/06/17 0300 Other Results Laboratory Tests Test 02/05/17 15:36 02/05/17 17:39 02/05/17 21:20 02/06/17 03:00 White Blood Count 7.8 TH/MM3 Red Blood Count 3.75 MIL/MM3 Hemoglobin 11.4 GM/DL Hematocrit 33.1 % Mean Corpuscular Volume 88.3 FL Mean Corpuscular Hemoglobin 30.4 PG Mean Corpuscular Hemoglobin Concent 34.4 % Red Cell Distribution Width 13.9 % Platelet Count 277 TH/MM3 Mean Platelet Volume 6.9 FL Neutrophils (%) (Auto) 80.7 % Lymphocytes (%) (Auto) 5.1 % Monocytes (%) (Auto) 5.6 % Eosinophils (%) (Auto) 7.9 % Basophils (%) (Auto) 0.7 % Neutrophils # (Auto) 6.3 TH/MM3 Lymphocytes # (Auto) 0.4 TH/MM3 Monocytes # (Auto) 0.4 TH/MM3 Eosinophils # (Auto) 0.6 TH/MM3 Basophils # (Auto) 0.1 TH/MM3 CBC Comment DIFF FINAL Differential Comment Prothrombin Time 11.1 SEC Prothromb Time International Ratio 1.0 RATIO Activated Partial Thromboplast Time 29.6 SEC Blood Urea Nitrogen 13 MG/DL 15 MG/DL Creatinine 0.90 MG/DL 0.92 MG/DL Random Glucose 102 MG/DL 207 MG/DL Calcium Level 8.8 MG/DL 9.1 MG/DL Magnesium Level 2.0 MG/DL 2.3 MG/DL Sodium Level 129 MEQ/L 131 MEQ/L Potassium Level 3.7 MEQ/L 3.1 MEQ/L Chloride Level 91 MEQ/L 93 MEQ/L Carbon Dioxide Level 29.3 MEQ/L 27.8 MEQ/L Anion Gap 9 MEQ/L 10 MEQ/L Estimat Glomerular Filtration Rate 60 ML/MIN 58 ML/MIN Total Creatine Kinase 45 U/L 25 U/L 28 U/L Troponin I LESS THAN 0.02 NG/ML LESS THAN 0.02 NG/ML LESS THAN 0.02 NG/ML B-Type Natriuretic Peptide 107 PG/ML Urine Color YELLOW Urine Turbidity CLEAR Urine pH 6.0 Urine Specific [place] 1.011 Urine Protein TRACE mg/dL Urine Glucose (UA) NEG mg/dL Urine Ketones 10 mg/dL Urine Occult Blood NEG Urine Nitrite NEG Urine Bilirubin NEG Urine Urobilinogen LESS THAN 2.0 MG/DL Urine Leukocyte Esterase NEG Urine RBC 1 /hpf Urine WBC 4 /hpf Urine Hyaline Casts 1 /lpf Urine Mucus FEW /lpf Microscopic Urinalysis Comment CULT NOT INDICATED Total Protein 7.0 GM/DL Albumin 2.7 GM/DL Phosphorus Level 3.3 MG/DL Alkaline Phosphatase 73 U/L Aspartate Amino Transf (AST/SGOT) 12 U/L Alanine Aminotransferase (ALT/SGPT) 20 U/L Total Bilirubin 0.3 MG/DL Free Thyroxine 1.26 NG/DL Thyroid Stimulating Hormone 3rd Gen 0.999 uIU/ML Test 02/06/17 07:06 White Blood Count 4.3 TH/MM3 Red Blood Count 3.72 MIL/MM3 Hemoglobin 11.2 GM/DL Hematocrit 33.1 % Mean Corpuscular Volume 89.1 FL Mean Corpuscular Hemoglobin 30.2 PG Mean Corpuscular Hemoglobin Concent 33.9 % Red Cell Distribution Width 14.1 % Platelet Count 259 TH/MM3 Mean Platelet Volume 6.9 FL Neutrophils (%) (Auto) 91.5 % Lymphocytes (%) (Auto) 6.7 % Monocytes (%) (Auto) 1.4 % Eosinophils (%) (Auto) 0.1 % Basophils (%) (Auto) 0.3 % Neutrophils # (Auto) 3.9 TH/MM3 Lymphocytes # (Auto) 0.3 TH/MM3 Monocytes # (Auto) 0.1 TH/MM3 Eosinophils # (Auto) 0.0 TH/MM3 Basophils # (Auto) 0.0 TH/MM3 CBC Comment DIFF FINAL Differential Comment Hemoglobin A1c 5.9 % Imaging Last Impressions Chest X-Ray 02/05/17 1525 Signed Impressions: Service Date/Time: Sunday, February 05, 2017 15:50 - CONCLUSION: Stable appearance of chronic scarring and no acute cardiopulmonary change. Jean-Pierre Welch MD Objective Remarks GENERAL: This is a well-nourished, well-developed patient, in no apparent distress. Somewhat anxious SKIN: No rashes, ecchymoses or lesions. Cool and dry. HEAD: Atraumatic. Normocephalic. No temporal or scalp tenderness. EYES: Pupils equal round and reactive. Extraocular motions intact. No scleral icterus. No injection or drainage. ENT: Nose without bleeding, purulent drainage or septal hematoma. Throat without erythema, tonsillar hypertrophy or exudate. Uvula midline. Airway patent. NECK: Trachea midline. No JVD or lymphadenopathy. Supple, nontender, no meningeal signs. CARDIOVASCULAR: Regular rate and rhythm without murmurs, gallops, or rubs. S1, S2 NO S3 OR S4 NO HEAVE OR THRILL RESPIRATORY: decreased breath sounds bilaterally. Breath sounds equal bilaterally. No rales, or rhonchi. Few scattered we discussed GASTROINTESTINAL: Abdomen soft, non-tender, nondistended. No hepato-splenomegaly , or palpable masses. No guarding. MUSCULOSKELETAL: Extremities without clubbing, cyanosis, or edema. No joint tenderness, effusion, or edema noted. No calf tenderness. Negative Homans sign bilaterally. NEUROLOGICAL: Awake and alert. Cranial nerves II through XII intact. Motor and sensory grossly within normal limits. Five out of 5 muscle strength in all muscle groups. Normal speech. Insight and judgment is good Mood and behaviors appropriate Medications and IVs Current Medications Sodium Chloride (NS Flush) 2 ml UNSCH PRN IVF FLUSH AFTER USING IV ACCESS; Start 02/05/17 at 15:30; Stop 02/05/17 at 17:18; Status DC Albuterol/ Ipratropium (Duoneb Neb) 1 ampule ONCE ONCE INH Last administered on 02/05/17 15:55; Start 02/05/17 at 15:30; Stop 02/05/17 at 15:31; Status DC Albuterol/ Ipratropium (Duoneb Neb) 1 ampule ONCE ONCE INH Last administered on 02/05/17 17:08; Start 02/05/17 at 16:30; Stop 02/05/17 at 16:31; Status DC Methylprednisolone Sodium Succinate (SoluMEDROL INJ) 60 mg ONCE IV PUSH Last administered on 02/05/17 16:26; Start 02/05/17 at 16:30 Amlodipine Besylate (Norvasc) 5 mg DAILY PO Last administered on 02/06/17 09:45 ; Start 02/06/17 at 09:00 Budesonide/ Formoterol Fumarate (Symbicort 160-4.5 Inh) 1 puff Q12HR INH Last administered on 02/06/17 09:46; Start 02/05/17 at 21:00 Clonazepam (KlonoPIN) 1 mg HS PRN PO RESTLESSNESS Last administered on 21:56; Start 02/05/17 at 17:15 Levofloxacin (Levaquin) 750 mg DAILY@1100 PO Last administered on 02/06/17 09: 45; Start 02/06/17 at 11:00 Lisinopril (Prinivil) 20 mg BID PO Last administered on 02/06/17 09:44; Start 02/05/17 at 21:00 Metoprolol Tartrate (Lopressor) 50 mg BID PO Last administered on 02/06/17 09: 45; Start 02/05/17 at 21:00 Calcium/Vitamin D (Oscal-D 250-125) 500 mg DAILY PO Last administered on 09:45; Start 02/06/17 at 09:00 Cholecalciferol (Vitamin D3) 1,000 units DAILY PO Last administered on 09:45; Start 02/06/17 at 09:00 Multivitamins (Theragran) 1 tab DAILY PO Last administered on 02/06/17 09:44; Start 02/06/17 at 09:00 Albuterol/ Ipratropium (Duoneb Neb) 1 ampule Q4HR NEB PRN NEB sob; Start at 17:15 Albuterol/ Ipratropium (Duoneb Neb) 1 ampule Q6HR WHILE AWAKE NEB NEB Last administered on 02/06/17 11:53; Start 02/05/17 at 20:00 Guaifenesin (Mucinex Er) 600 mg BID PO Last administered on 02/06/17 09:45; Start 02/05/17 at 21:00 Sodium Chloride (NS Flush) 2 ml UNSCH PRN IV FLUSH FLUSH AFTER USING IV ACCESS ; Start 02/05/17 at 17:15; Stop 02/05/17 at 17:25; Status DC Sodium Chloride (NS Flush) 2 ml BID IV FLUSH ; Start 02/05/17 at 21:00; Stop 02/05 at 21:00; Status DC Acetaminophen (Tylenol) 650 mg Q4H PRN PO TEMP > 100.4; Start 02/05/17 at 17:15 Ondansetron HCl (Zofran Inj) 4 mg Q6H PRN IVP NAUSEA OR VOMITING; Start at 17:15; Stop 02/05/17 at 17:25; Status DC Prochlorperazine (Compazine Supp) 25 mg Q12H PRN ME NAUSEA OR VOMITING; Start 02/05/17 at 17:15; Stop 02/05/17 at 17:25; Status DC Sodium Chloride (NS Flush) 2 ml UNSCH PRN IV FLUSH FLUSH AFTER USING IV ACCESS ; Start 02/05/17 at 17:30; Stop 02/05/17 at 17:30; Status DC Sodium Chloride (NS Flush) 2 ml BID IV FLUSH ; Start 02/05/17 at 21:00; Stop 02/05 at 21:00; Status DC Acetaminophen (Tylenol) 650 mg Q4H PRN PO TEMP > 100.4; Start 02/05/17 at 17:30 ; Stop 02/05/17 at 17:30; Status DC Ondansetron HCl (Zofran Inj) 4 mg Q6H PRN IVP NAUSEA OR VOMITING; Start at 17:30 Prochlorperazine (Compazine Supp) 25 mg Q12H PRN RECTAL NAUSEA OR VOMITING; Start 02/05/17 at 17:30 Enoxaparin Sodium (Lovenox Inj) 40 mg Q24H SQ Last administered on 02/05/17 18: 21; Start 02/05/17 at 18:00 Acetaminophen (Tylenol) 650 mg Q6H PRN PO PAIN SCALE 1 TO 2 Last administered on 02/05/17 21:56; Start 02/05/17 at 17:30 Acetaminophen/ Hydrocodone Bitart ([place] 5-325 Mg) 1 tab Q4H PRN PO PAIN SCALE 3 TO 5; Start 02/05/17 at 17:30 Acetaminophen/ Hydrocodone Bitart ([place] 10-325 Mg) 1 tab Q4H PRN PO PAIN SCALE 6 TO 10; Start 02/05/17 at 17:30 Morphine Sulfate (Morphine Inj) 2 mg Q3H PRN IV Pain 3-5; if unable to take PO ; Start 02/05/17 at 17:30 Morphine Sulfate (Morphine Inj) 4 mg Q3H PRN IV Pain 6-10;if unable to take PO ; Start 02/05/17 at 17:30 Naloxone HCl (Narcan Inj) 0.4 mg UNSCH PRN IV SEE LABEL COMMENTS; Start at 17:30 Senna/Docusate Sodium (Gena-Colace) 1 tab BID PO Last administered on 02/06/17 09:44; Start 02/05/17 at 21:00 Magnesium Hydroxide (Milk Of Magnesia Liq) 30 ml Q12H PRN PO MILD - MODERATE CONSTIPATION; Start 02/05/17 at 17:30 Sennosides (Senokot) 17.2 mg Q12H PRN PO MODERATE - SEVERE CONSTIPATION; Start 02/05/17 at 17:30 Bisacodyl (Dulcolax Supp) 10 mg DAILY PRN RECTAL SEVERE CONSITIPATION; Start at 17:30 Lactulose (Lactulose Liq) 30 ml DAILY PRN PO SEVERE CONSITIPATION; Start at 17:30 Sodium Chloride (NS Flush) 2 ml BID IV FLUSH Last administered on 02/06/17 09: 46; Start 02/05/17 at 21:00 Sodium Chloride (NS Flush) 2 ml UNSCH PRN IV FLUSH FLUSH AFTER USING IV ACCESS ; Start 02/05/17 at 17:30 Budesonide/ Formoterol Fumarate (Symbicort 160-4.5 Inh) 2 puff Q12HR INH ; Start 02/05/17 at 21:00; Stop 02/05/17 at 21:00; Status DC Methylprednisolone Sodium Succinate (SoluMEDROL INJ) 60 mg Q6H IVP Last administered on 02/06/17 13:22; Start 02/05/17 at 18:00 Pneumococcal Polyvalent Vaccine (Pneumovax-23 Inj) 25 mcg ONCE ONCE IM Last administered on 02/06/17 09:47; Start 02/06/17 at 10:00; Stop 02/06/17 at 10:01; Status DC Influenza Virus Vaccine (Flu (Quadrivalent) Vaccine Inj) 0.5 ml ONCE ONCE IM ; Start 02/06/17 at 10:00; Stop 02/06/17 at 10:01; Status DC Urinary Catheter: No Vascular Central Line Catheter: No A/P Problem List: (1) History of lung cancer ICD Code: Z85.118 - Personal history of other malignant neoplasm of bronchus and lung (2) History of pneumonia ICD Code: Z87.01 - Personal history of pneumonia (recurrent) (3) Hypertension ICD Code: I10 - Hypertension Status: Chronic (4) COPD (chronic obstructive pulmonary disease) ICD Code: J44.9 - Chronic obstructive pulmonary disease, unspecified (5) Fever ICD Code: R50.9 - Fever, unspecified Status: Acute (6) Generalized weakness ICD Code: R53.1 - Weakness Assessment and Plan COPD versus congestive heart failure exacerbation. We'll continue on home medications. We'll continue on steroids Solu-Medrol as well as Mucinex and DuoNeb's And her Symbicort We'll get a.m. labs Continue on Levaquin We'll get physical therapy and occupational therapy to eval and treat regarding generalized weakness May need a walk test We'll probably need a nebulizer for home use Discussed with patient and RN Hypertension continue on her home medications Watch fluid balance and fluid intakes Check a BNP A.m. labs HYPOKALEMIA WILL REPLACE DW PT AND RN AND FAMILY AND SON AND GRANDDAUGHTER Problem Qualifiers (1) COPD (chronic obstructive pulmonary disease): Qualified Codes: J44.1 - Chronic obstructive pulmonary disease with (acute) exacerbation Enmanuel Liu DO Feb 06, 2017 17:33
[2017-02-06] MEDS ORDERED: POTASSIUM CHLORIDE 10 MEQ CONTROLLED RELEASE TAB PO ONE ×2 (18:15→20:15)
[2017-02-06] MEDS: ENOXAPARIN SODIUM 40 MG/0.4 ML SYRINGE SQ SCH (18:43)
--- NOTE | 2017-02-06 20:15 | EKG ---
Date Performed: 02/05/2017 Time Performed: 15:37:30 PTAGE: 81 years EKG: Sinus rhythm WITH OCCASIONAL SUPRAVENTRICULAR PREMATURE COMPLEXES LEFT ATRIAL ENLARGEMENT INTRAVENTRICULAR CONDUC TION DELAY ABNORMAL ECG PREVIOUS TRACING : 07/14/2014 12.34 DOCTOR: lOivia Worley Interpretating Date/Time 02/06/2017 20:10:39
[2017-02-07] MEDS: clonazePAM 1 MG TAB PO PRN (01:42)
[2017-02-07] MEDS: methylPREDNISolone SOD SUCC 125 MG/2 ML VIAL IVP SCH ×3 (01:43→12:30)
[2017-02-07 03:25] VITALS: PULSE 91
[2017-02-07 03:27] VITALS: BP 113/53; PULSE 97; RESP 17; TEMP 98.1; O2SAT 97
[2017-02-07 06:49] LABS: AUTOMATED NEUTROPHIL # 16.2 TH/MM3 (1.8-7.7); BASOPHIL # 0.1 TH/MM3 (0-0.2); BASOPHIL % 0.3 % (0.0-2.0); HEMATOCRIT 31.5 % (35.0-46.0); LYMPH % 1.8 % (9.0-44.0); LYMPHOCYTE # 0.3 TH/MM3 (1.0-4.8); MEAN CELL VOLUME 89.3 FL (80.0-100.0); MEAN CORPUSCULAR HEMOGLOBIN 30.4 PG (27.0-34.0); NEUT % 95.9 % (16.0-70.0); PLATELET COUNT 268 TH/MM3 (150-450); RED BLOOD COUNT 3.53 MIL/MM3 (4.00-5.30); RED CELL DISTRIBUTION WIDTH 14.2 % (11.6-17.2); WHITE BLOOD COUNT 16.9 TH/MM3 (4.0-11.0)
[2017-02-07 07:04] LABS: HEMO FLAGS AUTO DIFF
[2017-02-07 07:22] LABS: ALKALINE PHOSPHATASE 70 U/L (45-117); ALT (GPT) 20 U/L (10-53); ANION GAP 8 MEQ/L (5-15); AST (GOT) 14 U/L (15-37); BICARBONATE 27.7 MEQ/L (21.0-32.0); BLOOD UREA NITROGEN 24 MG/DL (7-18); CHLORIDE 95 MEQ/L (98-107); GLOMERULAR FILTRATION RATE 58 ML/MIN (>89); POTASSIUM 4.3 MEQ/L (3.5-5.1); SODIUM (NA) 131 MEQ/L (136-145); TOTAL BILIRUBIN ADULT 0.2 MG/DL (0.2-1.0)
[2017-02-07 07:34] VITALS: BP 128/58; PULSE 91; RESP 16; TEMP 97.5; O2SAT 100
[2017-02-07 07:47] VITALS: O2SAT 100
[2017-02-07] MEDS: RESP: ALBUTEROL 2.5 MG/IPRATROPIUM 0.5 MG NEB (SCH) NEB ×2 (07:47→11:33)
[2017-02-07 08:53] LABS: BANDS 8 % (0-6); NEUTROPHIL # MANUAL DIFF 16.6 TH/MM3 (1.8-7.7); POLYS (SEG NEUTROPHILS) 90 % (16-70); WBC DIFF SAMPLE 100
[2017-02-07 08:54] LABS: PLATELET ESTIMATE SMEAR NORMAL (NORMAL); PLATELET MORPHOLOGY NORMAL (NORMAL); SCAN/DIFF FINAL DIFF MANUAL
[2017-02-07] MEDS: LISINOPRIL 20 MG TAB PO SCH (09:28)
[2017-02-07] MEDS: guaiFENesin E.R. 600 MG TAB PO SCH (09:28)
[2017-02-07] MEDS: BUDESONIDE-FORMOTEROL 160/4.5 MCG INHALER INH SCH (09:28)
[2017-02-07] MEDS: DOCUSATE SODIUM 50 MG/SENNA 8.6 MG TAB PO SCH (09:29)
[2017-02-07] MEDS: MULTIVITAMIN TAB PO SCH (09:29)
[2017-02-07] MEDS: CHOLECALCIFEROL (VIT D3) 1000 UNIT TAB PO SCH (09:29)
[2017-02-07] MEDS: LEVOFLOXACIN 750 MG TAB PO SCH (09:29)
[2017-02-07] MEDS: SODIUM CHLORIDE 0.9% FLUSH 10 ML FLUSH IV FLUSH SCH (09:29)
[2017-02-07] MEDS: METOPROLOL TARTRATE 50 MG TAB PO SCH (09:29)
[2017-02-07] MEDS: amLODIPine BESYLATE 5 MG TAB PO SCH (09:29)
[2017-02-07] MEDS: CALCIUM/VITAMIN D 250 MG/125 U TAB PO SCH (09:29)
[2017-02-07 11:14] VITALS: BP 128/60; PULSE 89; RESP 20; TEMP 97.6; O2SAT 94
[2017-02-07 15:54] VITALS: BP 108/57; PULSE 96; RESP 20; TEMP 97.8; O2SAT 96
--- NOTE | 2017-02-07 16:42 | HHI.PR ---
Subjective Remarks Patient is an 81-year-old female, Who comes back to the emergency department after being discharged from [facility] 2 days ago for pneumonia. Patient was discharged on Levaquin. Reports she is taking this as prescribed. Patient states she started her last dose this morning. Patient states she awoke today she was feeling more short of breath and increased generalized weakness. Patient denies using any breathing treatments at home. Patient reports fever at home today states she took Tylenol for this. Denies any nausea denies any vomiting denies any chest pain denies any headache denies anything tingling anywhere denies any loss or change in bowel or bladder denies any abdominal pain has an occasional cough Patient will be placed on steroids will be given breathing treatments will be given Mucinex and DuoNeb's and will need follow tonight and observed Get a.m. labs 9-4 patient is breathing a little better. Discussed with patient and RN and her son and granddaughter We will need nebulizer at discharge as well as solution for it. We'll need steroids at discharge Will need Mucinex at discharge Will need antibiotics at discharge We'll do walk test and hopefully that will be negative and will not need oxygen if it is positive we'll get her oxygen A.m. labs 9-5 breathing much better wants to go home dw patient and rn and family will dc to home today follow up with pcp and pulm dr osorio Objective Vitals Vital Signs Date Time Temp Pulse Resp B/P (MAP) Pulse Ox O2 Delivery O2 Flow Rate FiO2 02/07/17 15:54 97.8 96 20 108/57 (74) 96 02/07/17 11:14 97.6 89 20 128/60 (82) 94 02/07/17 07:47 100 02/07/17 07:34 97.5 91 16 128/58 (81) 100 02/07/17 03:27 98.1 97 17 113/53 (73) 97 02/07/17 03:25 91 02/06/17 23:52 94 02/06/17 23:20 98.0 95 18 129/60 (83) 97 02/06/17 21:06 104 02/06/17 20:34 97 21 02/06/17 19:07 97.8 102 18 133/61 (85) 97 I/O 9/4/17 9/09/1902/06/17 02/07/17 02/07/17 02/07/17 06:59 14:59 22:59 06:59 14:59 22:59 # Voids 1 2 Result Diagram: 02/07/17 0525 02/07/17 0525 Other Results Laboratory Tests Test 02/05/17 15:36 02/05/17 17:39 02/05/17 21:20 02/06/17 03:00 White Blood Count 7.8 TH/MM3 Red Blood Count 3.75 MIL/MM3 Hemoglobin 11.4 GM/DL Hematocrit 33.1 % Mean Corpuscular Volume 88.3 FL Mean Corpuscular Hemoglobin 30.4 PG Mean Corpuscular Hemoglobin Concent 34.4 % Red Cell Distribution Width 13.9 % Platelet Count 277 TH/MM3 Mean Platelet Volume 6.9 FL Neutrophils (%) (Auto) 80.7 % Lymphocytes (%) (Auto) 5.1 % Monocytes (%) (Auto) 5.6 % Eosinophils (%) (Auto) 7.9 % Basophils (%) (Auto) 0.7 % Neutrophils # (Auto) 6.3 TH/MM3 Lymphocytes # (Auto) 0.4 TH/MM3 Monocytes # (Auto) 0.4 TH/MM3 Eosinophils # (Auto) 0.6 TH/MM3 Basophils # (Auto) 0.1 TH/MM3 CBC Comment DIFF FINAL Differential Comment Prothrombin Time 11.1 SEC Prothromb Time International Ratio 1.0 RATIO Activated Partial Thromboplast Time 29.6 SEC Blood Urea Nitrogen 13 MG/DL 15 MG/DL Creatinine 0.90 MG/DL 0.92 MG/DL Random Glucose 102 MG/DL 207 MG/DL Calcium Level 8.8 MG/DL 9.1 MG/DL Magnesium Level 2.0 MG/DL 2.3 MG/DL Sodium Level 129 MEQ/L 131 MEQ/L Potassium Level 3.7 MEQ/L 3.1 MEQ/L Chloride Level 91 MEQ/L 93 MEQ/L Carbon Dioxide Level 29.3 MEQ/L 27.8 MEQ/L Anion Gap 9 MEQ/L 10 MEQ/L Estimat Glomerular Filtration Rate 60 ML/MIN 58 ML/MIN Total Creatine Kinase 45 U/L 25 U/L 28 U/L Troponin I LESS THAN 0.02 NG/ML LESS THAN 0.02 NG/ML LESS THAN 0.02 NG/ML B-Type Natriuretic Peptide 107 PG/ML Urine Color YELLOW Urine Turbidity CLEAR Urine pH 6.0 Urine Specific [place] 1.011 Urine Protein TRACE mg/dL Urine Glucose (UA) NEG mg/dL Urine Ketones 10 mg/dL Urine Occult Blood NEG Urine Nitrite NEG Urine Bilirubin NEG Urine Urobilinogen LESS THAN 2.0 MG/DL Urine Leukocyte Esterase NEG Urine RBC 1 /hpf Urine WBC 4 /hpf Urine Hyaline Casts 1 /lpf Urine Mucus FEW /lpf Microscopic Urinalysis Comment CULT NOT INDICATED Total Protein 7.0 GM/DL Albumin 2.7 GM/DL Phosphorus Level 3.3 MG/DL Alkaline Phosphatase 73 U/L Aspartate Amino Transf (AST/SGOT) 12 U/L Alanine Aminotransferase (ALT/SGPT) 20 U/L Total Bilirubin 0.3 MG/DL Free Thyroxine 1.26 NG/DL Thyroid Stimulating Hormone 3rd Gen 0.999 uIU/ML Test 02/06/17 07:06 02/07/17 05:25 White Blood Count 4.3 TH/MM3 16.9 TH/MM3 Red Blood Count 3.72 MIL/MM3 3.53 MIL/MM3 Hemoglobin 11.2 GM/DL 10.7 GM/DL Hematocrit 33.1 % 31.5 % Mean Corpuscular Volume 89.1 FL 89.3 FL Mean Corpuscular Hemoglobin 30.2 PG 30.4 PG Mean Corpuscular Hemoglobin Concent 33.9 % 34.0 % Red Cell Distribution Width 14.1 % 14.2 % Platelet Count 259 TH/MM3 268 TH/MM3 Mean Platelet Volume 6.9 FL 7.8 FL Neutrophils (%) (Auto) 91.5 % 95.9 % Lymphocytes (%) (Auto) 6.7 % 1.8 % Monocytes (%) (Auto) 1.4 % 2.0 % Eosinophils (%) (Auto) 0.1 % 0.0 % Basophils (%) (Auto) 0.3 % 0.3 % Neutrophils # (Auto) 3.9 TH/MM3 16.2 TH/MM3 Lymphocytes # (Auto) 0.3 TH/MM3 0.3 TH/MM3 Monocytes # (Auto) 0.1 TH/MM3 0.3 TH/MM3 Eosinophils # (Auto) 0.0 TH/MM3 0.0 TH/MM3 Basophils # (Auto) 0.0 TH/MM3 0.1 TH/MM3 CBC Comment DIFF FINAL AUTO DIFF Differential Comment FINAL DIFF MANUAL Hemoglobin A1c 5.9 % Differential Total Cells Counted 100 Neutrophils % (Manual) 90 % Band Neutrophils % 8 % Lymphocytes % 1 % Monocytes % 1 % Neutrophils # (Manual) 16.6 TH/MM3 Platelet Estimate NORMAL Platelet Morphology Comment NORMAL Red Cell Morphology Comment NORMAL Blood Urea Nitrogen 24 MG/DL Creatinine 0.92 MG/DL Random Glucose 155 MG/DL Total Protein 6.3 GM/DL Albumin 2.4 GM/DL Calcium Level 9.3 MG/DL Phosphorus Level 4.0 MG/DL Magnesium Level 2.0 MG/DL Alkaline Phosphatase 70 U/L Aspartate Amino Transf (AST/SGOT) 14 U/L Alanine Aminotransferase (ALT/SGPT) 20 U/L Total Bilirubin 0.2 MG/DL Sodium Level 131 MEQ/L Potassium Level 4.3 MEQ/L Chloride Level 95 MEQ/L Carbon Dioxide Level 27.7 MEQ/L Anion Gap 8 MEQ/L Estimat Glomerular Filtration Rate 58 ML/MIN B-Type Natriuretic Peptide 69 PG/ML Imaging Last Impressions Chest X-Ray 02/05/17 1525 Signed Impressions: Service Date/Time: Sunday, February 05, 2017 15:50 - CONCLUSION: Stable appearance of chronic scarring and no acute cardiopulmonary change. Jean-Pierre Welch MD Objective Remarks GENERAL: This is a well-nourished, well-developed patient, in no apparent distress. Somewhat anxious SKIN: No rashes, ecchymoses or lesions. Cool and dry. HEAD: Atraumatic. Normocephalic. No temporal or scalp tenderness. EYES: Pupils equal round and reactive. Extraocular motions intact. No scleral icterus. No injection or drainage. ENT: Nose without bleeding, purulent drainage or septal hematoma. Throat without erythema, tonsillar hypertrophy or exudate. Uvula midline. Airway patent. NECK: Trachea midline. No JVD or lymphadenopathy. Supple, nontender, no meningeal signs. CARDIOVASCULAR: Regular rate and rhythm without murmurs, gallops, or rubs. S1, S2 NO S3 OR S4 NO HEAVE OR THRILL RESPIRATORY: decreased breath sounds bilaterally. Breath sounds equal bilaterally. No rales, or rhonchi. LESS scattered RHONCHI GASTROINTESTINAL: Abdomen soft, non-tender, nondistended. No hepato-splenomegaly , or palpable masses. No guarding. MUSCULOSKELETAL: Extremities without clubbing, cyanosis, or edema. No joint tenderness, effusion, or edema noted. No calf tenderness. Negative Homans sign bilaterally. NEUROLOGICAL: Awake and alert. Cranial nerves II through XII intact. Motor and sensory grossly within normal limits. Five out of 5 muscle strength in all muscle groups. Normal speech. Insight and judgment is good Mood and behaviors appropriate Procedures none Medications and IVs Current Medications Sodium Chloride (NS Flush) 2 ml UNSCH PRN IVF FLUSH AFTER USING IV ACCESS; Start 02/05/17 at 15:30; Stop 02/05/17 at 17:18; Status DC Albuterol/ Ipratropium (Duoneb Neb) 1 ampule ONCE ONCE INH Last administered on 02/05/17 15:55; Start 02/05/17 at 15:30; Stop 02/05/17 at 15:31; Status DC Albuterol/ Ipratropium (Duoneb Neb) 1 ampule ONCE ONCE INH Last administered on 02/05/17 17:08; Start 02/05/17 at 16:30; Stop 02/05/17 at 16:31; Status DC Methylprednisolone Sodium Succinate (SoluMEDROL INJ) 60 mg ONCE IV PUSH Last administered on 02/05/17 16:26; Start 02/05/17 at 16:30; Stop 02/06/17 at 18:10; Status DC Amlodipine Besylate (Norvasc) 5 mg DAILY PO Last administered on 02/07/17 09:29 ; Start 02/06/17 at 09:00 Budesonide/ Formoterol Fumarate (Symbicort 160-4.5 Inh) 1 puff Q12HR INH Last administered on 02/07/17 09:28; Start 02/05/17 at 21:00 Clonazepam (KlonoPIN) 1 mg HS PRN PO RESTLESSNESS Last administered on 01:42; Start 02/05/17 at 17:15 Levofloxacin (Levaquin) 750 mg DAILY@1100 PO Last administered on 02/07/17 09: 29; Start 02/06/17 at 11:00 Lisinopril (Prinivil) 20 mg BID PO Last administered on 02/07/17 09:28; Start 02/05/17 at 21:00 Metoprolol Tartrate (Lopressor) 50 mg BID PO Last administered on 02/07/17 09: 29; Start 02/05/17 at 21:00 Calcium/Vitamin D (Oscal-D 250-125) 500 mg DAILY PO Last administered on 09:29; Start 02/06/17 at 09:00 Cholecalciferol (Vitamin D3) 1,000 units DAILY PO Last administered on 09:29; Start 02/06/17 at 09:00 Multivitamins (Theragran) 1 tab DAILY PO Last administered on 02/07/17 09:29; Start 02/06/17 at 09:00 Albuterol/ Ipratropium (Duoneb Neb) 1 ampule Q4HR NEB PRN NEB sob; Start at 17:15 Albuterol/ Ipratropium (Duoneb Neb) 1 ampule Q6HR WHILE AWAKE NEB NEB Last administered on 02/07/17 11:33; Start 02/05/17 at 20:00 Guaifenesin (Mucinex Er) 600 mg BID PO Last administered on 02/07/17 09:28; Start 02/05/17 at 21:00 Sodium Chloride (NS Flush) 2 ml UNSCH PRN IV FLUSH FLUSH AFTER USING IV ACCESS ; Start 02/05/17 at 17:15; Stop 02/05/17 at 17:25; Status DC Sodium Chloride (NS Flush) 2 ml BID IV FLUSH ; Start 02/05/17 at 21:00; Stop 02/05 at 21:00; Status DC Acetaminophen (Tylenol) 650 mg Q4H PRN PO TEMP > 100.4; Start 02/05/17 at 17:15 Ondansetron HCl (Zofran Inj) 4 mg Q6H PRN IVP NAUSEA OR VOMITING; Start at 17:15; Stop 02/05/17 at 17:25; Status DC Prochlorperazine (Compazine Supp) 25 mg Q12H PRN [place] NAUSEA OR VOMITING; Start 02/05/17 at 17:15; Stop 02/05/17 at 17:25; Status DC Sodium Chloride (NS Flush) 2 ml UNSCH PRN IV FLUSH FLUSH AFTER USING IV ACCESS ; Start 02/05/17 at 17:30; Stop 02/05/17 at 17:30; Status DC Sodium Chloride (NS Flush) 2 ml BID IV FLUSH ; Start 02/05/17 at 21:00; Stop 02/05 at 21:00; Status DC Acetaminophen (Tylenol) 650 mg Q4H PRN PO TEMP > 100.4; Start 02/05/17 at 17:30 ; Stop 02/05/17 at 17:30; Status DC Ondansetron HCl (Zofran Inj) 4 mg Q6H PRN IVP NAUSEA OR VOMITING; Start at 17:30 Prochlorperazine (Compazine Supp) 25 mg Q12H PRN RECTAL NAUSEA OR VOMITING; Start 02/05/17 at 17:30 Enoxaparin Sodium (Lovenox Inj) 40 mg Q24H SQ Last administered on 02/06/17 18: 43; Start 02/05/17 at 18:00 Acetaminophen (Tylenol) 650 mg Q6H PRN PO PAIN SCALE 1 TO 2 Last administered on 02/05/17 21:56; Start 02/05/17 at 17:30 Acetaminophen/ Hydrocodone Bitart ([place] 5-325 Mg) 1 tab Q4H PRN PO PAIN SCALE 3 TO 5; Start 02/05/17 at 17:30 Acetaminophen/ Hydrocodone Bitart ([place] 10-325 Mg) 1 tab Q4H PRN PO PAIN SCALE 6 TO 10; Start 02/05/17 at 17:30 Morphine Sulfate (Morphine Inj) 2 mg Q3H PRN IV Pain 3-5; if unable to take PO ; Start 02/05/17 at 17:30 Morphine Sulfate (Morphine Inj) 4 mg Q3H PRN IV Pain 6-10;if unable to take PO ; Start 02/05/17 at 17:30 Naloxone HCl (Narcan Inj) 0.4 mg UNSCH PRN IV SEE LABEL COMMENTS; Start at 17:30 Senna/Docusate Sodium (Gena-Colace) 1 tab BID PO Last administered on 02/07/17 09:29; Start 02/05/17 at 21:00 Magnesium Hydroxide (Milk Of Magnesia Liq) 30 ml Q12H PRN PO MILD - MODERATE CONSTIPATION; Start 02/05/17 at 17:30 Sennosides (Senokot) 17.2 mg Q12H PRN PO MODERATE - SEVERE CONSTIPATION; Start 02/05/17 at 17:30 Bisacodyl (Dulcolax Supp) 10 mg DAILY PRN RECTAL SEVERE CONSITIPATION; Start at 17:30 Lactulose (Lactulose Liq) 30 ml DAILY PRN PO SEVERE CONSITIPATION; Start at 17:30 Sodium Chloride (NS Flush) 2 ml BID IV FLUSH Last administered on 02/07/17 09: 29; Start 02/05/17 at 21:00 Sodium Chloride (NS Flush) 2 ml UNSCH PRN IV FLUSH FLUSH AFTER USING IV ACCESS ; Start 02/05/17 at 17:30 Budesonide/ Formoterol Fumarate (Symbicort 160-4.5 Inh) 2 puff Q12HR INH ; Start 02/05/17 at 21:00; Stop 02/05/17 at 21:00; Status DC Methylprednisolone Sodium Succinate (SoluMEDROL INJ) 60 mg Q6H IVP Last administered on 02/07/17 12:30; Start 02/05/17 at 18:00 Pneumococcal Polyvalent Vaccine (Pneumovax-23 Inj) 25 mcg ONCE ONCE IM Last administered on 02/06/17 09:47; Start 02/06/17 at 10:00; Stop 02/06/17 at 10:01; Status DC Influenza Virus Vaccine (Flu (Quadrivalent) Vaccine Inj) 0.5 ml ONCE ONCE IM ; Start 02/06/17 at 10:00; Stop 02/06/17 at 10:01; Status DC Potassium Chloride (KCl) 40 meq NOW ONCE PO Last administered on 02/06/17 18: 43; Start 02/06/17 at 18:15; Stop 02/06/17 at 18:16; Status DC Potassium Chloride (KCl) 30 meq ONCE ONCE PO ; Start 02/06/17 at 20:15; Stop 02/06/17 at 20:16; Status DC Urinary Catheter: No Vascular Central Line Catheter: No A/P Problem List: (1) History of lung cancer ICD Code: Z85.118 - Personal history of other malignant neoplasm of bronchus and lung (2) History of pneumonia ICD Code: Z87.01 - Personal history of pneumonia (recurrent) (3) Hypertension ICD Code: I10 - Hypertension Status: Chronic (4) COPD (chronic obstructive pulmonary disease) ICD Code: J44.9 - Chronic obstructive pulmonary disease, unspecified (5) Fever ICD Code: R50.9 - Fever, unspecified Status: Acute (6) Generalized weakness ICD Code: R53.1 - Weakness Assessment and Plan COPD versus congestive heart failure exacerbation. MORE COPD We'll continue on home medications. We'll continue on steroids Solu-Medrol as well as Mucinex and DuoNeb's SWITCH TO PO MEDS And her Symbicort We'll get a.m. labs Continue on Levaquin We'll get physical therapy and occupational therapy to eval and treat regarding generalized weakness May need a walk test PASSED WALK TEST We'll probably need a nebulizer for home use Discussed with patient and RN Hypertension continue on her home medications Watch fluid balance and fluid intakes HYPOKALEMIA WILL REPLACE DW PT AND RN AND FAMILY AND SON AND GRANDDAUGHTER DC TO HOME Problem Qualifiers (1) COPD (chronic obstructive pulmonary disease): Qualified Codes: J44.1 - Chronic obstructive pulmonary disease with (acute) exacerbation Enmanuel Liu DO Feb 07, 2017 16:42
[2017-02-07] MEDS ORDERED: NEBULIZER/ADULT1 KIT (16:54)
[2017-02-07] MEDS ORDERED: NEBULIZER1 MI1 (16:54)
[2017-02-07] MEDS ORDERED: NEBUKIT5 (16:54)
[2017-02-07] MEDS ORDERED: PRED5PAK2 PO (16:54)
[2017-02-07] MEDS ORDERED: SYMB160A INH (16:54)
[2017-02-07] MEDS ORDERED: IPRASOL NEB (16:54)
[2017-02-07] MEDS ORDERED: guaiFENesin ER PO (16:54)
--- NOTE | 2017-02-07 16:57 | HHI.DS ---
Discharge Summary Admission Date Feb 05, 2017 at 17:12 Discharge Date: Feb 07, 2017 Admitting Diagnosis COPD exacerbation, generalized weakness (1) History of lung cancer ICD Code: Z85.118 - Personal history of other malignant neoplasm of bronchus and lung Diagnosis: Secondary (2) History of pneumonia ICD Code: Z87.01 - Personal history of pneumonia (recurrent) Diagnosis: Principal (3) Hypertension ICD Code: I10 - Hypertension Diagnosis: Secondary Status: Chronic (4) COPD (chronic obstructive pulmonary disease) ICD Code: J44.9 - Chronic obstructive pulmonary disease, unspecified Diagnosis: Principal (5) Fever ICD Code: R50.9 - Fever, unspecified Diagnosis: Secondary Status: Acute (6) Generalized weakness ICD Code: R53.1 - Weakness Diagnosis: Secondary Procedures none Brief History - From Admission Patient is an 81-year-old female, Who comes back to the emergency department after being discharged from [facility] 2 days ago for pneumonia. Patient was discharged on Levaquin. Reports she is taking this as prescribed. Patient states she started her last dose this morning. Patient states she awoke today she was feeling more short of breath and increased generalized weakness. Patient denies using any breathing treatments at home. Patient reports fever at home today states she took Tylenol for this. Denies any nausea denies any vomiting denies any chest pain denies any headache denies anything tingling anywhere denies any loss or change in bowel or bladder denies any abdominal pain has an occasional cough Patient will be placed on steroids will be given breathing treatments will be given Mucinex and DuoNeb's and will need follow tonight and observed Get a.m. labs CBC/BMP: 02/07/17 0525 02/07/17 0525 Significant Findings Laboratory Tests Test 02/05/17 15:36 02/05/17 17:39 02/05/17 21:20 02/06/17 03:00 Red Blood Count 3.75 MIL/MM3 (4.00-5.30) Hemoglobin 11.4 GM/DL (11.6-15.3) Hematocrit 33.1 % (35.0-46.0) Mean Platelet Volume 6.9 FL (7.0-11.0) Neutrophils (%) (Auto) 80.7 % (16.0-70.0) Lymphocytes (%) (Auto) 5.1 % (9.0-44.0) Eosinophils (%) (Auto) 7.9 % (0.0-4.0) Lymphocytes # (Auto) 0.4 TH/MM3 (1.0-4.8) Eosinophils # (Auto) 0.6 TH/MM3 (0-0.4) Sodium Level 129 MEQ/L (136-145) 131 MEQ/L (136-145) Chloride Level 91 MEQ/L (98-107) 93 MEQ/L (98-107) Estimat Glomerular Filtration Rate 60 ML/MIN (>89) 58 ML/MIN (>89) Troponin I LESS THAN 0.02 NG/ML LESS THAN 0.02 NG/ML LESS THAN 0.02 NG/ML B-Type Natriuretic Peptide 107 PG/ML (0-100) Urine Ketones 10 mg/dL (NEG) Urine Mucus FEW /lpf (OCC) Total Creatine Kinase 25 U/L (26-192) Random Glucose 207 MG/DL (74-106) Albumin 2.7 GM/DL (3.4-5.0) Aspartate Amino Transf (AST/SGOT) 12 U/L (15-37) Potassium Level 3.1 MEQ/L (3.5-5.1) Test 02/06/17 07:06 02/07/17 05:25 Red Blood Count 3.72 MIL/MM3 (4.00-5.30) 3.53 MIL/MM3 (4.00-5.30) Hemoglobin 11.2 GM/DL (11.6-15.3) 10.7 GM/DL (11.6-15.3) Hematocrit 33.1 % (35.0-46.0) 31.5 % (35.0-46.0) Mean Platelet Volume 6.9 FL (7.0-11.0) Neutrophils (%) (Auto) 91.5 % (16.0-70.0) 95.9 % (16.0-70.0) Lymphocytes (%) (Auto) 6.7 % (9.0-44.0) 1.8 % (9.0-44.0) Lymphocytes # (Auto) 0.3 TH/MM3 (1.0-4.8) 0.3 TH/MM3 (1.0-4.8) White Blood Count 16.9 TH/MM3 (4.0-11.0) Neutrophils # (Auto) 16.2 TH/MM3 (1.8-7.7) Neutrophils % (Manual) 90 % (16-70) Band Neutrophils % 8 % (0-6) Lymphocytes % 1 % (9-44) Neutrophils # (Manual) 16.6 TH/MM3 (1.8-7.7) Blood Urea Nitrogen 24 MG/DL (7-18) Random Glucose 155 MG/DL (74-106) Total Protein 6.3 GM/DL (6.4-8.2) Albumin 2.4 GM/DL (3.4-5.0) Aspartate Amino Transf (AST/SGOT) 14 U/L (15-37) Sodium Level 131 MEQ/L (136-145) Chloride Level 95 MEQ/L (98-107) Estimat Glomerular Filtration Rate 58 ML/MIN (>89) Imaging Last Impressions Chest X-Ray 02/05/17 1525 Signed Impressions: Service Date/Time: Sunday, February 05, 2017 15:50 - CONCLUSION: Stable appearance of chronic scarring and no acute cardiopulmonary change. Jean-Pierre Welch MD PE at Discharge GENERAL: This is a well-nourished, well-developed patient, in no apparent distress. Somewhat anxious SKIN: No rashes, ecchymoses or lesions. Cool and dry. HEAD: Atraumatic. Normocephalic. No temporal or scalp tenderness. EYES: Pupils equal round and reactive. Extraocular motions intact. No scleral icterus. No injection or drainage. ENT: Nose without bleeding, purulent drainage or septal hematoma. Throat without erythema, tonsillar hypertrophy or exudate. Uvula midline. Airway patent. NECK: Trachea midline. No JVD or lymphadenopathy. Supple, nontender, no meningeal signs. CARDIOVASCULAR: Regular rate and rhythm without murmurs, gallops, or rubs. S1, S2 NO S3 OR S4 NO HEAVE OR THRILL RESPIRATORY: decreased breath sounds bilaterally. Breath sounds equal bilaterally. No rales, or rhonchi. LESS scattered RHONCHI GASTROINTESTINAL: Abdomen soft, non-tender, nondistended. No hepato-splenomegaly , or palpable masses. No guarding. MUSCULOSKELETAL: Extremities without clubbing, cyanosis, or edema. No joint tenderness, effusion, or edema noted. No calf tenderness. Negative Homans sign bilaterally. NEUROLOGICAL: Awake and alert. Cranial nerves II through XII intact. Motor and sensory grossly within normal limits. Five out of 5 muscle strength in all muscle groups. Normal speech. Insight and judgment is good Mood and behaviors appropriate Hospital Course Patient is an 81-year-old female, Who comes back to the emergency department after being discharged from [facility] 2 days ago for pneumonia. Patient was discharged on Levaquin. Reports she is taking this as prescribed. Patient states she started her last dose this morning. Patient states she awoke today she was feeling more short of breath and increased generalized weakness. Patient denies using any breathing treatments at home. Patient reports fever at home today states she took Tylenol for this. Denies any nausea denies any vomiting denies any chest pain denies any headache denies anything tingling anywhere denies any loss or change in bowel or bladder denies any abdominal pain has an occasional cough Patient will be placed on steroids will be given breathing treatments will be given Mucinex and DuoNeb's and will need follow tonight and observed Get a.m. labs 9-4 patient is breathing a little better. Discussed with patient and RN and her son and granddaughter We will need nebulizer at discharge as well as solution for it. We'll need steroids at discharge Will need Mucinex at discharge Will need antibiotics at discharge We'll do walk test and hopefully that will be negative and will not need oxygen if it is positive we'll get her oxygen A.m. labs 9-5 breathing much better wants to go home dw patient and rn and family will dc to home today follow up with pcp and pulm dr salas Pt Condition on Discharge: Good Discharge Disposition: Discharge Home Discharge Time: > 30 minutes Discharge Instructions DIET: Follow Instructions for: Heart Healthy Diet Speech Therapy-Diet Recommends: Regular Activities you can perform: Regular-No Restrictions Follow up Referrals: PCP Follow-up - 3-5 Days with Abel Mann MD Pulmonology - 1 Week with Ben Salas MD New Medications: Nebulizer (Nebulizer) 1 Mis Mis EA .ROUTE DIRECTED for Breathing Treatment, #1 0 Refills Nebulizer Kit/Tubing/Mout (Nebulizer Kit/Tubing/Mout) 1 Kit Kit KIT .ROUTE DIRECTED for Breathing Treatment, #1 0 Refills Nebulizer/Adult Mask (Nebulizer/Adult Mask) 1 Kit Kit KIT .ROUTE DIRECTED for Breathing Treatment, #1 0 Refills Prednisone (48) 5 mg tab Dose Pack (Prednisone (48) 5 mg tab Dose Pack) 5 Mg Dspk 5 MG PO DIRECTED for Inflammation, #1 DSPK 0 Refills Ipratropium-Albuterol Neb (Duoneb) 0.5-2.5 Mg/3 Ml Neb 1 AMPULE NEB Q6HR WHILE AWAKE NEB PRN for SHORTNESS OF BREATH, #180 ML Q6 HOURS AND PRN SOB [guaiFENesin ER] () 600 MG TABCR 600 MG PO BID for Breathing Treatment, #60 Continued Medications: Amlodipine (Amlodipine) 5 Mg Tab 5 MG PO DAILY for Blood Pressure Management, #30 TAB 0 Refills Ascorbic Acid (Vitamin C) 250 Mg Tab 250 MG PO for Nutritional Supplement, TAB 0 Refills Budesonide-Formoterol Inh (Symbicort Inh) 160-4.5 Mcg/Act Aero 1 PUFF INH Q12HR for Breathing Treatment, #1 INHALER 0 Refills (This prescription has been renewed) Calcium Carbonate-Vitamin D Chew (Caltrate 600+D Chew) 600-400 Mg-Unit Chew 1 TAB PO DAILY for Nutritional Supplement, EA 0 Refills Cholecalciferol (Vitamin D-3) 1,000 Unit Cap 1 TAB PO DAILY Clonazepam (Clonazepam) 1 Mg Tab 1 MG PO HS PRN for RESTLESSNESS, #60 TAB 0 Refills Denosumab Inj (Prolia Inj) 60 Mg/Ml Inj 60 MG SQ Q180D, VIAL 0 Refills Levofloxacin (Levaquin) 750 Mg Tablet 750 MG PO DAILY@1100 for Infection, #5 TAB Lisinopril (Lisinopril) 20 Mg Tab 20 MG PO BID, #30 TAB 0 Refills Metoprolol Tartrate (Metoprolol Tartrate) 50 Mg Tab 50 MG PO BID, #60 TAB 0 Refills Multivitamin (Once Daily) 1 Each Tablet 1 CAP PO DAILY Enmanuel Liu DO Feb 07, 2017 16:57
== END 2017-02-07 17:49 | disposition home or self-care (01) ==
LOC: NEPE 15:08 → NEDA 17:12 → NEPHCDU 18:32
PROVIDERS: ADMIT Hospitalist; ATTEND Hospitalist
DX: J44.1 Chronic obstructive pulmonary disease with (acute) exacerbation (principal); J18.9 Pneumonia, unspecified organism; I10 Essential (primary) hypertension; I48.91 Unspecified atrial fibrillation; R53.1 Weakness; E87.6 Hypokalemia; Z79.899 Other long term (current) drug therapy; Z87.891 Personal history of nicotine dependence; Z23 Encounter for immunization; Z79.01 Long term (current) use of anticoagulants; Z85.118 Personal history of other malignant neoplasm of bronchus and lung
CPT/HCPCS: 71010; 76937; 80048; 80053; 81001; 82550; 83036; 83735; 83880; 84100; 84439; 84443; 84484; 85007; 85025; 85027; 85610; 85730; 90732; 93005; 94150; 94640; 94664; 96372; 96374; 96376; 97163; 97166; 99285; G0009; G0378; G8987; G8988; G8989; J1650; J2930; 90471

== ENCOUNTER → 2017-02-28 | Outpatient (CLI) | payer MEDICARE, BC ==
[~2017-02-28] MED LIST changes: +IPRASOL NEB; +NEBUKIT5; +NEBULIZER/ADULT1 KIT; +NEBULIZER1 MI1; +PRED5PAK2 PO; +SYMB160A INH; +guaiFENesin ER PO
== END ==
LOC: PLAB 13:17
PROVIDERS: ATTEND Internal Medicine
DX: R50.9 Fever, unspecified (principal); J20.9 Acute bronchitis, unspecified
CPT/HCPCS: 36415; 85652; 86140

== ENCOUNTER → 2017-04-04 | Outpatient (CLI) | payer MEDICARE, BC ==
[2017-04-04 13:09] LABS: HEMATOCRIT 37.8 % (35.0-46.0); HEMOGLOBIN 12.5 GM/DL (11.6-15.3); MEAN CELL VOLUME 91.5 FL (80.0-100.0); MEAN CORPUSCULAR HEMOGLOBIN 30.3 PG (27.0-34.0); MEAN CORPUSCULAR HGB CONC 33.1 % (32.0-36.0); MEAN PLATELET VOLUME 7.9 FL (7.0-11.0); PLATELET COUNT 261 TH/MM3 (150-450); RED BLOOD COUNT 4.13 MIL/MM3 (4.00-5.30); RED CELL DISTRIBUTION WIDTH 16.6 % (11.6-17.2); WHITE BLOOD COUNT 4.1 TH/MM3 (4.0-11.0)
[2017-04-04 13:40] LABS: ALBUMIN 3.6 GM/DL (3.4-5.0); AST (GOT) 18 U/L (15-37); BICARBONATE 28.2 MEQ/L (21.0-32.0); BLOOD UREA NITROGEN 21 MG/DL (7-18); CALCIUM 9.2 MG/DL (8.5-10.1); CHLORIDE 102 MEQ/L (98-107); CREATININE 0.72 MG/DL (0.50-1.00); GLOMERULAR FILTRATION RATE 77 ML/MIN (>89); GLUCOSE,FASTING 92 MG/DL (74-99); SODIUM (NA) 138 MEQ/L (136-145)
[2017-04-04 13:41] LABS: ALT (GPT) 17 U/L (10-53)
[2017-04-04 13:43] LABS: ALKALINE PHOSPHATASE 68 U/L (45-117); TOTAL BILIRUBIN ADULT 0.3 MG/DL (0.2-1.0); TOTAL PROTEIN 7.3 GM/DL (6.4-8.2)
[2017-04-04 13:49] LABS: CHOLESTEROL/ HDL RATIO 2.81 RATIO; FREE T4 0.94 NG/DL (0.76-1.46); HDL CHOLESTEROL 58.7 MG/DL (40.0-60.0)
== END ==
LOC: PLAB 07:52
PROVIDERS: ATTEND Internal Medicine
DX: E78.2 Mixed hyperlipidemia (principal); M81.0 Age-related osteoporosis without current pathological fracture; I10 Essential (primary) hypertension; E03.8 Other specified hypothyroidism; C34.90 Malignant neoplasm of unspecified part of unspecified bronchus or lung
CPT/HCPCS: 36415; 80053; 80061; 82306; 83721; 84439; 84443; 85027; 85652; 86140

== ENCOUNTER → 2017-06-12 | Outpatient (CLI) | payer MEDICARE, BC ==
[~2017-06-12] MED LIST changes: -CHOL1CAP6 PO; +D31000CA3 PO
[2017-06-12 16:41] LABS: AST (GOT) 25 U/L (15-37); BLOOD UREA NITROGEN 20 MG/DL (7-18); CALCIUM 9.4 MG/DL (8.5-10.1); CHLORIDE 99 MEQ/L (98-107); CREATININE 0.93 MG/DL (0.50-1.00); GLOMERULAR FILTRATION RATE 58 ML/MIN (>89); GLUCOSE,RANDOM 102 MG/DL (74-106); SODIUM (NA) 137 MEQ/L (136-145)
[2017-06-12 16:45] LABS: ALKALINE PHOSPHATASE 84 U/L (45-117); ALT (GPT) 22 U/L (10-53); TOTAL BILIRUBIN ADULT 0.3 MG/DL (0.2-1.0); TOTAL PROTEIN 7.5 GM/DL (6.4-8.2)
== END ==
LOC: PLAB 12:13
PROVIDERS: ATTEND Internal Medicine Endocrinology, Diabetes & Metabolism
DX: M81.0 Age-related osteoporosis without current pathological fracture (principal)
CPT/HCPCS: 36415; 80053; 82306

== ENCOUNTER 2017-08-17 08:09 | Day surgery (SDC) | payer MEDICARE, BC ==
[~2017-08-17] VITALS: Ht 177.8 cm; Wt 68.2 kg
[~2017-08-17 08:09] MED LIST changes: +CALCTAB19 PO; -CALTCHW5 PO; -LEVA750T9 PO
[2017-08-17] MEDS ORDERED: ceFAZolin 2 GM PREMIX 50 ML IV SCH (08:30)
[2017-08-17] MEDS: SODIUM CHLOR 0.9% 1000 ML INJ 1,000 ML IV SCH ×2 (08:30→10:47)
[2017-08-17] MEDS ORDERED: METO50TA PO (08:37)
[2017-08-17] MEDS ORDERED: OXYC1TAB63 PO (08:38)
[2017-08-17 08:39] VITALS: BP 151/72; PULSE 81; RESP 18; TEMP 98; O2SAT 97
[2017-08-17 09:06] LABS: AUTOMATED NEUTROPHIL # 4.4 TH/MM3 (1.8-7.7); BASOPHIL % 0.7 % (0.0-2.0); EOSINOPHIL # 0.1 TH/MM3 (0-0.4); EOSINOPHIL % 1.9 % (0.0-4.0); HEMATOCRIT 39.2 % (35.0-46.0); HEMOGLOBIN 13.6 GM/DL (11.6-15.3); LYMPH % 16.5 % (9.0-44.0); MEAN CELL VOLUME 88.6 FL (80.0-100.0); MEAN CORPUSCULAR HEMOGLOBIN 30.7 PG (27.0-34.0); MEAN CORPUSCULAR HGB CONC 34.6 % (32.0-36.0); MONO % 8.7 % (0.0-8.0); MONOCYTE # 0.5 TH/MM3 (0-0.9); NEUT % 72.2 % (16.0-70.0); PLATELET COUNT 277 TH/MM3 (150-450); RED BLOOD COUNT 4.42 MIL/MM3 (4.00-5.30); RED CELL DISTRIBUTION WIDTH 14.5 % (11.6-17.2)
[2017-08-17 09:14] LABS: PROTHROMBIN TIME - PATIENT 10.3 SEC (9.8-11.6)
[2017-08-17] MEDS ORDERED: BUPIVACAINE HCL PF 0.75% 30 ML VIAL ONE (10:12)
[2017-08-17] MEDS ORDERED: MIDAZOLAM HCL 2 MG/2 ML VIAL ONE ×2 (10:49→10:50)
[2017-08-17] MEDS ORDERED: SODIUM CHLOR 0.9% 250 ML INJ 250 ML ONE (10:53)
--- NOTE | 2017-08-17 11:30 | PD.RAD ---
Post Procedure Progress Note Pre Procedure Diagnosis: (1) Compression fracture of T12 vertebra with delayed healing Post Procedure Diagnosis: (1) Compression fracture of T12 vertebra with delayed healing Procedure Date: Aug 17, 2017 Supervising Radiologist: Ubaldo Oneal Estimated blood loss: None Anesthesia: Local, Conscious Sedation Plan of Activity Patient to Unit: ROPU Patient Condition: Good Additional Comments: Post kyphoplasty of T12 Good spread of cement across the vertebral bodies. See PACS Report for procedural detail/treatment Ubaldo Oneal MD Aug 17, 2017 11:30
[2017-08-17] MEDS ORDERED: SUGAMMADEX SODIUM 200 MG/2 ML VIAL IV PUSH ONE ×2 (11:42→11:54)
[2017-08-17] MEDS ORDERED: RESP: ALBUTEROL 2.5 MG/3 ML NEB (PRN) ONE (11:43)
[2017-08-17] MEDS ORDERED: DEXAMETHASONE SOD PHOS 4 MG/ML VIAL IV ONE (12:00)
[2017-08-17] MEDS ORDERED: NEOSTIGMINE 5 MG/5 ML SYRINGE IV PUSH ONE (12:00)
[2017-08-17] MEDS ORDERED: GLYCOPYRROLATE 0.2 MG/ML VIAL IV ONE (12:00)
[2017-08-17] MEDS ORDERED: ROCURONIUM INJ 50 MG/5 ML SYRINGE IV PUSH ONE (12:00)
[2017-08-17] MEDS ORDERED: PROPOFOL 200 MG/20 ML AMP IV ONE (12:00)
[2017-08-17] MEDS ORDERED: LIDOCAINE HCL 1% PF 5 ML SYRINGE OTHER ONE (12:00)
[2017-08-17] MEDS ORDERED: ONDANSETRON HCL 4 MG/2 ML VIAL IV ONE (12:00)
[2017-08-17] MEDS ORDERED: *RESP: ALBUTEROL 2.5 MG/3 ML NEB (PRN) PERIprocedural Use ONLY NEB ONE (12:03)
[2017-08-17] MEDS ORDERED: ACETAMINOPHEN 1000 MG/100 ML 100 ML IV ONE (12:07)
[2017-08-17 12:53] VITALS: BP 155/55; PULSE 84; RESP 20; TEMP 97.4; O2SAT 98
[2017-08-17] MEDS ORDERED: MORPHINE SULFATE 4 MG/ML INJ ONE (12:57)
[2017-08-17 13:09] VITALS: BP 127/62; PULSE 85; RESP 18; O2SAT 97
--- NOTE | 2017-08-17 13:18 | RADRPT ---
EXAM DATE/TIME: 08/17/2017 08:54 [facility] COMPARISON: NEEDLE BX UNDER FLUORO, August 17, 2017, 0:00. INDICATIONS : Patient presents with a compression fracture of T-12 refractory to medical management.. MEDICAL HISTORY : HTN Hyperlipidemia COPD Osteoporosis Cervical Cancer Lung Cancer Breast Cancer Anemia Arthritis Irregular heart beat Migraine SURGICAL HISTORY : Cataract Removal Tonsillectomy Colonoscopy 2008 Lumpectomy and lymph node resection on left in 1999 Hysterectomy complete 1977 Appendectomy 1941 ENCOUNTER: Initial ACUITY: 1 month PAIN SCORE: 4/10 LOCATION: mid back FLUORO TIME: 24.7 minutes IMAGE SERIES: 1 LEVEL: T12 DEVICE: 1. 10 cc AVAMax bone cement Anesthesia and pain control was provided by the Anesthesia department. PROCEDURE : 1. Fluoroscopically-guided kyphoplasty. 2. Conscious sedation with continuous EKG and oximetry monitoring. The risks, benefits and alternatives to the procedure were explained and verbal and written consent w as obtained. The site was prepped in sterile fashion. Full sterile technique was used, including ca p, mask, sterile gloves and gown and a large sterile sheet. Hand hygiene and 2% chlorhexidine and/or betadine/alcohol prep was utilized per protocol for cutaneous antisepsis. The skin and subcutaneous tissues were infiltrated with local anesthetic solution. With fluoroscopic guidance via the right T12 pedicle was traversed. A cannula was placed in the poste rior third of the T12 vertebral body. Biopsy of the vertebral body was performed secondary to the pat ient's previous cancer history. Kyphoplasty was performed using a curved balloon. The prescribed ce ment volume was placed. Post procedure images demonstrate cement confined to the vertebral body. The patient was performed under general anesthesia. The patient tolerated the procedure well and ther e were no complications. The patient was sent to post anesthesia recovery in stable condition. CONCLUSION: Uncomplicated kyphoplasty as above. biopsy of the vertebral body was performed simultaneously. Ubaldo Oneal MD on August 17, 2017 at 13:14 Board Certified Radiologist. This report was verified electronically.
[2017-08-17 13:39] VITALS: BP 124/67; PULSE 84; RESP 17; O2SAT 98
[2017-08-17] MEDS ORDERED: CALCIUM CARBONATE 500 MG CHEWABLE TAB CHEW ONE (14:30)
== END 2017-08-17 15:34 | disposition home or self-care (01) ==
LOC: HROP 08:09 → HRIP 08:12 → HROP 15:34
PROVIDERS: ATTEND Family Medicine
DX: S22.080G Wedge compression fracture of T11-T12 vertebra, subsequent encounter for fracture with delayed healing (principal); I10 Essential (primary) hypertension; E78.5 Hyperlipidemia, unspecified; J44.9 Chronic obstructive pulmonary disease, unspecified; I48.91 Unspecified atrial fibrillation
CPT/HCPCS: 01936; 22513; 85025; 85610; 85730; 88307; 88311; 94664; J0131; J0690; J2250; J2270; J3010; J7030; J7050; J7613; J1100; J2405; J2710

== ENCOUNTER 2017-08-24 13:49 | Day surgery (SDC) | payer MEDICARE, BC ==
[~2017-08-24 13:49] MED LIST changes: -IPRASOL NEB; -NEBUKIT5; -NEBULIZER/ADULT1 KIT; -NEBULIZER1 MI1; +OXYC1TAB63 PO; -PRED5PAK2 PO; -guaiFENesin ER PO
[2017-08-24 14:16] VITALS: BP 146/64; PULSE 84; RESP 18; TEMP 97.7; O2SAT 100
--- NOTE | 2017-08-24 16:17 | RADRPT ---
EXAM DATE/TIME: 08/24/2017 00:00 [facility] COMPARISON : INDICATIONS : FU Kyphoplasty OBJECTIVE: Temperature: 97.7 Heart Rate: 84 Blood Pressure: 146/64 Respiratory: 18 Oximetry: 100 PNEUMONIA VACCINE: HISTORY OF PRESENT ILLNESS: The patient is an 81-year-old who underwent kyphoplasty of T12-08/17/17. The patient tolerated the pro cedure well. The patient is here for followup evaluation. Biopsy was performed at the time of the [facility] hoplasty secondary to history of breast cancer. ASSESSMENT: The patient is doing quite well post kyphoplasty. She states the pain she was having in the lower tho racic region has completely resolved. The patient was examined. The puncture site over T12 is complet hubert healed. The patient does complain of continued pain over the lower lumbar region. She has had this for quite some time. 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 PLAN: 1. The patient has had complete resolution of the pain related to the T12 compression fracture. 2. The patient is still having pain which is likely related to the facet arthritis at L4/5 and L5/S1. The patient was advised to begin ibuprofen 400 mg p.o. b.i.d. with breakfast and lunch. If this does not significantly improve the patient's pain symptoms she was advised to recontact us and facet inje ction could be performed. TIME SPENT: 20 minutes. Ubaldo Oneal MD on August 24, 2017 at 16:11 Board Certified Radiologist. This report was verified electronically.
== END 2017-08-24 14:40 | disposition home or self-care (01) ==
LOC: HROP 13:49 → HRIP 13:52 → HROP 14:40
PROVIDERS: ATTEND Radiology Body Imaging
DX: S22.080D Wedge compression fracture of T11-T12 vertebra, subsequent encounter for fracture with routine healing (principal)

== ENCOUNTER 2017-09-06 13:02 | Day surgery (SDC) | payer MEDICARE, BC ==
[2017-09-06 13:20] VITALS: BP 148/67; PULSE 86; RESP 18; TEMP 97.8; O2SAT 97
[2017-09-06] MEDS ORDERED: TRIAMCINOLONE ACETONIDE 40 MG/ML VIAL ONE ×2 (14:35→14:36)
--- NOTE | 2017-09-06 15:06 | PD.RAD ---
Post Procedure Progress Note Pre Procedure Diagnosis: (1) Low back pain Post Procedure Diagnosis: (1) Low back pain Procedure Date: Sep 06, 2017 Supervising Radiologist: Ubaldo Oneal Estimated blood loss: none Anesthesia: Local Plan of Activity Patient to Unit: ROPU Patient Condition: Good Additional Comments: Pt. examined under fluoroscopy. Pain appears to originate from the L5/S1 facet region on the left. L5/S1 left facet injection and trigger point injection on the left preformed. Full dictated report to follow See PACS Report for procedural detail/treatment Ubaldo Oneal MD Sep 06, 2017 15:06
[2017-09-06 15:20] VITALS: BP 129/69; PULSE 93; RESP 17; TEMP 98.2; O2SAT 98
--- NOTE | 2017-09-06 16:54 | RADRPT ---
EXAM DATE/TIME: 09/06/2017 14:46 [facility] COMPARISON: INVASIVE RADIOLOGY CONSULT, August 24, 2017, 0:00. INDICATIONS : Patient presents with lower back pain here for facet injection. MEDICAL HISTORY : Breast Cancer Compression Fracture, Afib Pneumonia, Lung Cancer Osteoporosis Arthritis SURGICAL HISTORY : Kyphoplasty Bone Biopsy Cataract surgery Tonsillectomy Afib ablation Apendectomy Lmpectomy Hysterectomy Knee Replacement ENCOUNTER: Initial ACUITY: 1 month PAIN SCORE: 4/10 FLUORO TIME: 3.3 minutes IMAGE SERIES: 1 CONTRAST: 05 cc Omnipaque (iohexol) 300 ACCESS LEVEL: Left L5/S1 MEDICATION(S): 1.) 1 cc triamcinolone (Kenalog) IA RESPONSE: Pre procedure pain level was 5/10. Post procedure pain level was 0/10. PROCEDURE : Fluoroscopically guided facet injection. The risks, benefits and alternatives to the procedure were explained and verbal and written consent w as obtained. The site was prepped in sterile fashion. Full sterile technique was used, including ca p, mask, sterile gloves and gown and a large sterile sheet. Hand hygiene and 2% chlorhexidine and/or betadine/alcohol prep was utilized per protocol for cutaneous antisepsis. The skin and subcutaneous tissues were infiltrated with local anesthetic solution. With fluoroscopic guidance the targeted facet was localized and positive contrast was injected to con firm intra-articular position. The prescribed medications were injected into the facet joint. The pat ient's pre and post procedure pain levels were recorded. CONCLUSION: Uncomplicated fluoroscopically guided facet injection on the left at the L5-S1 level. Ubaldo Oneal MD on September 06, 2017 at 16:50 Board Certified Radiologist. This report was verified electronically.
[2017-09-06 17:03] VITALS: BP 125/68; PULSE 92; RESP 18; O2SAT 98
--- NOTE | 2017-09-06 17:22 | RADRPT ---
EXAM DATE/TIME: 09/06/2017 14:46 [facility] COMPARISON: INVASIVE RADIOLOGY CONSULT, August 24, 2017, 0:00. INDICATIONS : Patient presents with lower back pain here for facet injection. MEDICAL HISTORY : Breast Cancer Compression Fracture, Afib Pneumonia, Lung Cancer Osteoporosis Arthritis SURGICAL HISTORY : Kyphoplasty Bone Biopsy Cataract surgery Tonsillectomy Afib ablation Apendectomy Lmpectomy Hysterectomy Knee Replacement ENCOUNTER: Initial ACUITY: 1 month PAIN SCORE: 5/10 FLUORO TIME: 3.3 minutes IMAGE SERIES: 1 CONTRAST: 0.5 cc Omnipaque (iohexol) 300 ACCESS LEVEL: Left sacrum MEDICATION(S): 1.) 1 cc triamcinolone (Kenalog) IA 2.) 3 cc Lidocaine IA RESPONSE: Pre procedure pain level was 5/10. Post procedure pain level was 0/10. PROCEDURE : Fluoroscopically guided facet injection. The risks, benefits and alternatives to the procedure were explained and verbal and written consent w as obtained. The site was prepped in sterile fashion. Full sterile technique was used, including ca p, mask, sterile gloves and gown and a large sterile sheet. Hand hygiene and 2% chlorhexidine and/or betadine/alcohol prep was utilized per protocol for cutaneous antisepsis. The skin and subcutaneous tissues were infiltrated with local anesthetic solution. The patient was examined under fluoroscopy. The patient had undergone injection of the left L5-S1 fac et joint. This resulted in partial resolution of the pain symptoms however pain appeared to be somewh at lower than the facet joint. Under fluoroscopy this appeared to be localized to the left side of th e sacrum. The skin was anesthetized with 5 cc of 1% lidocaine. A 22 gauge needle was advanced through the skin into the aponeurosis around the left side of sacrum. Trigger point injection with 40 mg of Kenalog an d 4 cc of lidocaine was performed. The patient tolerated the procedure well. CONCLUSION: Uncomplicated fluoroscopically guided trigger point injection as above. Ubaldo Onael MD on September 06, 2017 at 17:18 Board Certified Radiologist. This report was verified electronically.
== END 2017-09-06 15:45 | disposition home or self-care (01) ==
LOC: HROP 13:02 → HRIP 13:06 → HROP 15:45
PROVIDERS: ATTEND Family Medicine
DX: M54.5 Low back pain (principal); I48.91 Unspecified atrial fibrillation; M81.0 Age-related osteoporosis without current pathological fracture; Z85.118 Personal history of other malignant neoplasm of bronchus and lung; Z85.3 Personal history of malignant neoplasm of breast
CPT/HCPCS: 20552; 64493; J3301

== ENCOUNTER → 2017-11-29 | Outpatient (CLI) | payer MEDICARE, BC ==
[~2017-11-29] MED LIST changes: -OXYC1TAB63 PO
[2017-11-29 16:53] LABS: AST (GOT) 26 U/L (15-37); CALCIUM 8.7 MG/DL (8.5-10.1); CHLORIDE 103 MEQ/L (98-107); CREATININE 0.94 MG/DL (0.50-1.00); GLOMERULAR FILTRATION RATE 57 ML/MIN (>89); SODIUM (NA) 140 MEQ/L (136-145)
[2017-11-29 17:02] LABS: ALBUMIN 3.5 GM/DL (3.4-5.0); ALKALINE PHOSPHATASE 76 U/L (45-117); ALT (GPT) 24 U/L (10-53); BICARBONATE 28.3 MEQ/L (21.0-32.0); BLOOD UREA NITROGEN 18 MG/DL (7-18); GLUCOSE,FASTING 98 MG/DL (74-99); TOTAL BILIRUBIN ADULT 0.2 MG/DL (0.2-1.0); TOTAL PROTEIN 6.9 GM/DL (6.4-8.2)
== END ==
LOC: PLAB 11:44
PROVIDERS: ATTEND Internal Medicine Endocrinology, Diabetes & Metabolism
DX: M81.0 Age-related osteoporosis without current pathological fracture (principal)
CPT/HCPCS: 36415; 80053; 82306